=== PATIENT | male | born 1975 | race African-American/Black ===

== ENCOUNTER 2023-02-23 21:59 | Inpatient (IN) | payer MEDICAID ==
[~2023-02-23] VITALS: Ht 193 cm; Wt 88.2 kg
[2023-02-23 22:53] LABS: Basophils # (auto) 0.2 10 ^3/uL (0-0.2); Basophils % (auto) 2.5 % (0.0-2.0); Eosinophils # (auto) 0 10 ^3/uL (0-0.8); Eosinophils % (auto) 0.6 % (0.0-7.0); Hematocrit 38.3 % (41.0-53.0); Hemoglobin 12.6 g/dL (13.5-17.5); Lymphocytes # (auto) 1.5 10 ^3/uL (0.4-5.4); Lymphocytes % (auto) 20.7 % (10.0-50.0); Mean Corpuscular Hgb Conc. 32.8 g/dL (32.0-36.0); Mean Corpuscular Volume 91.5 fL (80.0-100.0); Monocytes # (auto) 0.7 10 ^3/uL (0-1.3); Monocytes % (auto) 8.9 % (0.0-12.0); Neutrophils # (auto) 4.9 10 ^3/uL (1.6-8.6); Neutrophils % (auto) 67.3 % (37.0-80.0); Nucleated Red Blood Cells % 0.1 %; Red Blood Cells 4.18 10^6/uL (4.5-5.90); White Blood Cell 7.3 10^3/uL (4.4-10.8)
[2023-02-23 23:06] LABS: INR 1.88 (0.9-1.15); Partial Thromboplastin Time 24.5 sec (24.6-33.4)
[2023-02-23 23:20] LABS: Alanine Aminotransferase 325 U/L (16-61); Albumin 2.7 g/dL (3.4-5.0); Anion Gap 14 (5-15); Aspartate Aminotransferase 371 U/L (15-37); BUN/Creatinine Ratio 18.1 (10.0-20.0); Blood Urea Nitrogen 23 mg/dL (7-18); Calcium 8.5 mg/dL (8.5-10.1); Carbon Dioxide 20 mmol/L (21-32); Chloride 101 mmol/L (98-107); GFR African American 78 mL/min; GFR Non-African American 64 mL/min; Glucose 116 mg/dL (74-106); Potassium 4.2 mmol/L (3.5-5.1); Sodium 135 mmol/L (136-145)
[2023-02-23 23:23] LABS: Alkaline Phosphatase 122 U/L (45-117); Bilirubin, Total 1.6 mg/dL (0.2-1.0); Total Protein 6.4 g/dL (6.4-8.2)
[2023-02-23 23:25] LABS: Blood Alcohol < 3.0 mg/dL (0-5)
[2023-02-24] VITALS (62 sets, daily range): BP systolic 68–121; BP diastolic 25–85
[2023-02-24] MEDS ORDERED: FUROSEMIDE 100 MG/10ML VIAL IV ONE (01:00)
[2023-02-24] MEDS: METOPROLOL TARTRATE 1MG/1ML-5ML VIAL IV SCH ×3 (01:08→01:18)
[2023-02-24] MEDS ORDERED: SODIUM CHLORIDE 0.9% 1,000 ML IV ONE (01:30)
[2023-02-24] MEDS ORDERED: LORazepam 2MG/ML-1ML VIAL IV ONE ×2 (02:30→03:45)
[2023-02-24] MEDS ORDERED: ROCURONIUM 10MG/ML 10ML VIAL IV ONE ×2 (05:45→06:30)
[2023-02-24] MEDS ORDERED: ETOMIDATE (2MG/ML) 20ML VIAL IV ONE (05:45)
[2023-02-24] MEDS ORDERED: IBUPROFEN 100MG/5ML ORAL SUSP 100 MG/5 ML UD NG PRN (05:45)
[2023-02-24] MEDS ORDERED: ALBUMIN 25% 100 ML IV ONE (05:45)
[2023-02-24] MEDS ORDERED: SODIUM CHLORIDE 0.9% 1,000 ML IV SCH (05:45)
[2023-02-24] MEDS ORDERED: LORazepam 2MG/ML-1ML VIAL IV PRN (05:45)
[2023-02-24] MEDS ORDERED: ONDANSETRON HCL 4 MG/2 ML VIAL IV PRN (05:45)
[2023-02-24] MEDS ORDERED: PROPOFOL 100 ML IV ONE (05:47)
[2023-02-24] MEDS ORDERED: fentaNYL Drip 2500mCg/250mlNS 250 ML IV ONE (05:48)
[2023-02-24] MEDS: fentaNYL Drip 2500mCg/250mlNS 250 ML IV SCH (05:50)
[2023-02-24] MEDS: PROPOFOL 100 ML IV SCH ×2 (05:50→12:28)
[2023-02-24 06:29] LABS: Basophils # (auto) 0 10 ^3/uL (0-0.2); Basophils % (auto) 0.5 % (0.0-2.0); Eosinophils # (auto) 0 10 ^3/uL (0-0.8); Lymphocytes # (auto) 1.5 10 ^3/uL (0.4-5.4); Lymphocytes % (auto) 16.8 % (10.0-50.0); Mean Corpuscular Hemoglobin 30.1 pg (28.0-32.0); Mean Corpuscular Hgb Conc. 32.6 g/dL (32.0-36.0); Mean Corpuscular Volume 92.4 fL (80.0-100.0); Monocytes # (auto) 0.7 10 ^3/uL (0-1.3); Monocytes % (auto) 7.6 % (0.0-12.0); Neutrophils # (auto) 6.5 10 ^3/uL (1.6-8.6); Neutrophils % (auto) 75.1 % (37.0-80.0); Nucleated Red Blood Cells % 0.3 %; Red Blood Cells 4.33 10^6/uL (4.5-5.90); Red Cell Distribution Width 15.5 % (11.8-14.3); White Blood Cell 8.6 10^3/uL (4.4-10.8)
[2023-02-24] MEDS ORDERED: MORPHINE SULFATE INJ 2 MG/ml SYRG IV PRN (06:30)
[2023-02-24] MEDS ORDERED: NITROGLYCERIN 0.4 MG SL TAB SL PRN (06:30)
[2023-02-24 06:58] LABS: Albumin 2.8 g/dL (3.4-5.0); BUN/Creatinine Ratio 15.7 (10.0-20.0); Calcium 8.5 mg/dL (8.5-10.1); Potassium 5.2 mmol/L (3.5-5.1)
[2023-02-24 07:01] LABS: Bilirubin, Total 2.4 mg/dL (0.2-1.0); Total Protein 6.3 g/dL (6.4-8.2)
[2023-02-24] MEDS ORDERED: DEXTROSE 10% 1,000 ML IV ONE (07:08)
[2023-02-24 07:13] LABS: Urine Bacteria NONE SEEN /hpf (None Seen); Urine Blood 2+ /uL (Negative); Urine Hyaline Cast FEW /lpf (0 - 2); Urine Specific Gravity 1.011 (1.001-1.035); Urine WBC 10 /hpf (0 - 3); Urine WBC Clumps PRESENT /hpf (None Seen)
[2023-02-24] MEDS ORDERED: DEXTROSE (50%) 50ML SYRG IV ONE (07:30)
[2023-02-24 07:44] LABS: Alcohol, Urine < 3.0 mg/dL (0-10); Amphetamine Screen, Urine NEGATIVE (NEGATIVE); Barbiturate Scree,Urine NEGATIVE (NEGATIVE); Benzodiazephine Screen, Urine NEGATIVE (NEGATIVE); Cannabinoid Screen, Urine NEGATIVE (NEGATIVE); Cocaine Screen, Urine NEGATIVE (NEGATIVE); Opiate Scree,Urine NEGATIVE (NEGATIVE); Phencyclidine Screen, Urine NEGATIVE (NEGATIVE)
[2023-02-24] MEDS: POTASSIUM CHL 20MEQ/100ML 100 ML IV SCH ×2 (08:00→10:00)
[2023-02-24] MEDS: dilTIAZem 125mg/125ml BAG KIT 100 ML IV SCH (08:00)
[2023-02-24] MEDS ORDERED: CARVEDILOL 12.5 MG TAB PO SCH (10:00)
[2023-02-24] MEDS ORDERED: FUROSEMIDE 40 MG/4 ML VIAL IV SCH (10:00)
[2023-02-24] MEDS ORDERED: SODIUM BICARBONATE 8.4 % INJ 50ML VIAL IV ONE (10:30)
[2023-02-24] MEDS: CARVEDILOL 12.5 MG TAB PO SCH ×2 (10:30→21:40)
[2023-02-24] MEDS: FAMOTIDINE (10MG/ML) 2ML VL IV SCH ×2 (12:40→22:27)
[2023-02-24] MEDS: HEPARIN SODIUM (PORCINE) 5000 UNITS/ML 1ML VIAL SC SCH ×2 (12:45→22:29)
[2023-02-24] MEDS: NOREPINEPHRINE 8 MG/250ML KIT 250 ML IV SCH ×2 (12:58→20:15)
[2023-02-24] MEDS: SODIUM BICARB 50ML SYR 50 ML in D5W/SOD CHL 0.45% 1,000 ML IV SCH (13:49)
[2023-02-24 15:26] LABS: Hepatitis A Ab IgM Negative; Hepatitis B Core IgM Negative
[2023-02-24 15:27] LABS: Hepatitis C Antibody Negative (Negative)
[2023-02-24] MEDS ORDERED: AMIODARONE HCL 150 MG in D5W 5% 100 ML IV ONE (15:45)
[2023-02-24] MEDS ORDERED: AMIODARONE 450mg/250ml AE 250 ML IV SCH (15:45)
[2023-02-24] MEDS: ACCU-CHEK COMFORT CURVE STRIP VI SCH ×3 (16:31→22:16)
[2023-02-24] MEDS: LACTULOSE 20Gm/30ML SOLN GT SCH ×2 (18:25→22:27)
[2023-02-24] MEDS ORDERED: ATORVASTATIN 20 MG TAB PO SCH (22:00)
[2023-02-24] MEDS ORDERED: SODIUM CHLORIDE 0.9% 500 ML IV ONE (22:30)
[2023-02-24] MEDS ORDERED: DEXTROSE 10% 250 ML Bag IV PRN (22:45)
[2023-02-24] MEDS: MIDAZOLAM DRIP 50 mg/50mL 50 ML IV SCH (22:56)
[2023-02-24] MEDS: AMIODARONE 450mg/250ml AE 250 ML IV SCH (23:28)
[2023-02-25] VITALS (104 sets, daily range): BP systolic 28–120; BP diastolic 8–77
[2023-02-25] MEDS: PHENYLEPHRINE IV 250 ML IV SCH ×3 (01:50→07:32)
[2023-02-25] MEDS: NOREPINEPHRINE 8 MG/250ML KIT 250 ML IV SCH ×2 (02:00→06:00)
[2023-02-25] MEDS: LACTULOSE 20Gm/30ML SOLN GT SCH ×6 (02:03→22:00)
[2023-02-25] MEDS: ACCU-CHEK COMFORT CURVE STRIP VI SCH ×6 (02:04→22:42)
[2023-02-25] MEDS: SODIUM BICARB 50ML SYR 50 ML in D5W/SOD CHL 0.45% 1,000 ML IV SCH (03:20)
[2023-02-25] MEDS: fentaNYL Drip 2500mCg/250mlNS 250 ML IV SCH (03:22)
[2023-02-25] MEDS: dilTIAZem 125mg/125ml BAG KIT 100 ML IV SCH ×2 (04:00→23:02)
[2023-02-25 04:24] LABS: Basophils # (auto) 0.1 10 ^3/uL (0-0.2); Basophils % (auto) 0.4 % (0.0-2.0); Eosinophils # (auto) 0 10 ^3/uL (0-0.8); Hematocrit 38.1 % (41.0-53.0); Hemoglobin 12.9 g/dL (13.5-17.5); Lymphocytes # (auto) 1.1 10 ^3/uL (0.4-5.4); Mean Corpuscular Hemoglobin 31.1 pg (28.0-32.0); Mean Corpuscular Hgb Conc. 33.8 g/dL (32.0-36.0); Mean Corpuscular Volume 91.8 fL (80.0-100.0); Monocytes # (auto) 1.1 10 ^3/uL (0-1.3); Neutrophils # (auto) 19.5 10 ^3/uL (1.6-8.6); Neutrophils % (auto) 89.6 % (37.0-80.0); Nucleated Red Blood Cells % 1.2 %; Red Blood Cells 4.15 10^6/uL (4.5-5.90); Red Cell Distribution Width 16.6 % (11.8-14.3); White Blood Cell 21.8 10^3/uL (4.4-10.8)
[2023-02-25 04:42] LABS: Calcium 7.1 mg/dL (8.5-10.1); Potassium 4.9 mmol/L (3.5-5.1)
[2023-02-25 05:01] LABS: Albumin 3.1 g/dL (3.4-5.0); BUN/Creatinine Ratio 12.9 (10.0-20.0); Bilirubin, Total 3.4 mg/dL (0.2-1.0); Total Protein 6.3 g/dL (6.4-8.2)
[2023-02-25] MEDS: MIDAZOLAM DRIP 50 mg/50mL 50 ML IV SCH (06:00)
[2023-02-25 06:49] LABS: Lactic Acid w/Reflex 4.5 mmol/L (0.4-2.0)
[2023-02-25] MEDS ORDERED: VASOPRESSIN 20 UNIT/ML ONE (08:21)
[2023-02-25] MEDS: VASOPRESSIN 20 UNITS in SODIUM CHL 0.9% 99 ML IV SCH ×2 (08:48→17:48)
[2023-02-25] MEDS ORDERED: LACTATED RINGER'S 1,000 ML IV ONE (09:15)
[2023-02-25] MEDS: PHENYLEPHRINE INJ 80 MG in SODIUM CHL 0.9% 242 ML IV SCH ×2 (09:29→17:07)
[2023-02-25] MEDS: EPINEPHrine HCL 250 ML IV SCH ×2 (10:00→16:55)
[2023-02-25] MEDS ORDERED: EPINEPHrine HCL 250 ML IV ONE (10:06)
[2023-02-25] MEDS ORDERED: DOBUTamine 1000MCG/ML 250 ML IV ONE (10:06)
[2023-02-25] MEDS: DOBUTamine 1000MCG/ML 250 ML IV SCH ×3 (10:20→19:05)
[2023-02-25] MEDS: SODIUM BICARBONATE 50ML VIAL 150 ML in D5W 5% 1,000 ML IV SCH ×2 (10:21→10:41)
[2023-02-25] MEDS: NOREPINEPHRINE BITARTRATE 32 MG in SODIUM CHL 0.9% 218 ML IV SCH (10:21)
[2023-02-25] MEDS ORDERED: SODIUM BICARBONATE 8.4 % INJ 50ML VIAL IV ONE ×3 (10:30→15:45)
[2023-02-25] MEDS: HEPARIN SODIUM (PORCINE) 5000 UNITS/ML 1ML VIAL SC SCH ×2 (10:45→22:44)
[2023-02-25] MEDS: FAMOTIDINE (10MG/ML) 2ML VL IV SCH (10:46)
[2023-02-25] MEDS: LINEZOLID 600MG/300ML 300 ML IV SCH ×2 (10:51→22:41)
[2023-02-25] MEDS: AMIODARONE 450mg/250ml AE 250 ML IV SCH (12:55)
[2023-02-25] MEDS: MEROPENEM 500MG IVPB 50 ML IV SCH ×2 (13:14→22:42)
[2023-02-25] MEDS: DOPamine 3200MCG/ML 250 ML IV SCH (17:37)
[2023-02-25] MEDS: BUMETANIDE INJECTION 25 MG in GIVE UN-DILUTED 0 ML IV SCH (17:50)
[2023-02-26] VITALS (104 sets, daily range): BP systolic 29–118; BP diastolic 20–81
[2023-02-26] MEDS: SODIUM BICARBONATE 50ML VIAL 150 ML in D5W 5% 1,000 ML IV SCH ×2 (00:17→12:41)
[2023-02-26] MEDS: PHENYLEPHRINE INJ 80 MG in SODIUM CHL 0.9% 242 ML IV SCH ×4 (00:17→23:44)
[2023-02-26] MEDS: LACTULOSE 20Gm/30ML SOLN GT SCH ×6 (01:59→21:16)
[2023-02-26] MEDS: ACCU-CHEK COMFORT CURVE STRIP VI SCH ×6 (02:04→22:01)
[2023-02-26] MEDS: NOREPINEPHRINE BITARTRATE 32 MG in SODIUM CHL 0.9% 218 ML IV SCH ×2 (03:00→20:20)
[2023-02-26] MEDS: DOBUTamine 1000MCG/ML 250 ML IV SCH ×3 (03:43→21:13)
[2023-02-26] MEDS: AMIODARONE 450mg/250ml AE 250 ML IV SCH ×2 (03:45→19:10)
[2023-02-26 04:29] LABS: Basophils # (auto) 0 10 ^3/uL (0-0.2); Basophils % (auto) 0.1 % (0.0-2.0); Eosinophils # (auto) 0 10 ^3/uL (0-0.8); Hematocrit 38.3 % (41.0-53.0); Lymphocytes % (auto) 4.3 % (10.0-50.0); Mean Corpuscular Hemoglobin 30.1 pg (28.0-32.0); Mean Corpuscular Hgb Conc. 31.2 g/dL (32.0-36.0); Mean Corpuscular Volume 96.3 fL (80.0-100.0); Monocytes # (auto) 1.2 10 ^3/uL (0-1.3); Monocytes % (auto) 5.1 % (0.0-12.0); Neutrophils # (auto) 20.7 10 ^3/uL (1.6-8.6); Neutrophils % (auto) 90.5 % (37.0-80.0); Nucleated Red Blood Cells % 1.7 %; Red Blood Cells 3.97 10^6/uL (4.5-5.90); Red Cell Distribution Width 17.7 % (11.8-14.3); White Blood Cell 22.9 10^3/uL (4.4-10.8)
[2023-02-26 04:45] LABS: BUN/Creatinine Ratio 9.8 (10.0-20.0); Calcium 6.3 mg/dL (8.5-10.1)
[2023-02-26 05:11] LABS: Potassium 5.1 mmol/L (3.5-5.1)
[2023-02-26] MEDS: VASOPRESSIN 20 UNITS in SODIUM CHL 0.9% 99 ML IV SCH ×2 (05:38→18:06)
[2023-02-26] MEDS: fentaNYL Drip 2500mCg/250mlNS 250 ML IV SCH ×2 (05:39→09:47)
[2023-02-26] MEDS: PROPOFOL 100 ML IV SCH (05:39)
[2023-02-26] MEDS: EPINEPHrine HCL 250 ML IV SCH ×4 (07:03→21:11)
[2023-02-26] MEDS: HEPARIN SODIUM (PORCINE) 5000 UNITS/ML 1ML VIAL SC SCH ×2 (10:00→21:16)
[2023-02-26] MEDS: LINEZOLID 600MG/300ML 300 ML IV SCH ×2 (10:10→22:01)
[2023-02-26] MEDS: FAMOTIDINE (10MG/ML) 2ML VL IV SCH (10:10)
[2023-02-26] MEDS: BUMETANIDE INJECTION 25 MG in GIVE UN-DILUTED 0 ML IV SCH (12:48)
[2023-02-26] MEDS: MEROPENEM 500MG IVPB 50 ML IV SCH (13:09)
[2023-02-26] MEDS: DOPamine 3200MCG/ML 250 ML IV SCH (16:30)
[2023-02-26] MEDS ORDERED: CLINIMIX PER PHARMACY 0 ML IV SCH (17:45)
[2023-02-26] MEDS: dilTIAZem 125mg/125ml BAG KIT 100 ML IV SCH (19:43)
[2023-02-26] MEDS: AMINO ACID INFUSION IN D10W 1,000 ML IV NR (20:00)
[2023-02-26] MEDS: MIDAZOLAM DRIP 50 mg/50mL 50 ML IV SCH (22:30)
[2023-02-27] VITALS (105 sets, daily range): BP systolic 86–128; BP diastolic 54–85
[2023-02-27] MEDS ORDERED: DEXTROSE (50%) 50ML SYRG IV SCH
[2023-02-27] MEDS: ACCU-CHEK COMFORT CURVE STRIP VI SCH ×5 (00:19→23:33)
[2023-02-27] MEDS: InsuLIN REG 1unit/0.01ml Soln (100units/ml) SC SCH ×5 (00:19→23:43)
[2023-02-27] MEDS: SODIUM BICARBONATE 50ML VIAL 150 ML in D5W 5% 1,000 ML IV SCH (00:19)
[2023-02-27] MEDS: MEROPENEM 500MG IVPB 50 ML IV SCH ×3 (00:19→23:33)
[2023-02-27] MEDS: LACTULOSE 20Gm/30ML SOLN GT SCH ×6 (01:39→22:08)
[2023-02-27] MEDS: EPINEPHrine HCL 250 ML IV SCH ×2 (04:06→11:34)
[2023-02-27 04:23] LABS: Mean Corpuscular Hemoglobin 30.3 pg (28.0-32.0); Mean Corpuscular Hgb Conc. 32.4 g/dL (32.0-36.0); Mean Corpuscular Volume 93.5 fL (80.0-100.0); Red Blood Cells 3.96 10^6/uL (4.5-5.90); Red Cell Distribution Width 16.9 % (11.8-14.3); White Blood Cell 17.3 10^3/uL (4.4-10.8)
[2023-02-27 04:28] LABS: Albumin 2.5 g/dL (3.4-5.0); Magnesium 2.3 mg/dL (1.6-2.6); Potassium 4.3 mmol/L (3.5-5.1)
[2023-02-27 04:57] LABS: Basophils % (manual) 0 (0.0-2.0); Blast Cells 0; Eosinophils % (manual) 0 (0-7); Metamyelocytes % 0; Myelocytes % 0; Promyelocytes % 0; Reactive Lymphocytes 0
[2023-02-27 05:08] LABS: BUN/Creatinine Ratio 9.2 (10.0-20.0); Bilirubin, Total 4.9 mg/dL (0.2-1.0); Total Protein 5.2 g/dL (6.4-8.2)
[2023-02-27] MEDS: VASOPRESSIN 20 UNITS in SODIUM CHL 0.9% 99 ML IV SCH ×2 (05:12→16:05)
[2023-02-27] MEDS: fentaNYL Drip 2500mCg/250mlNS 250 ML IV SCH (05:14)
[2023-02-27 05:23] LABS: Calcium 5.1 mg/dL (8.5-10.1)
[2023-02-27] MEDS: PROPOFOL 100 ML IV SCH (05:43)
[2023-02-27] MEDS: DOBUTamine 1000MCG/ML 250 ML IV SCH ×3 (06:07→23:30)
[2023-02-27 07:37] LABS: Band Neutrophils % (manual) 9; Lymphocytes % (manual) 7 (10.0-50.0); Monocytes % (manual) 8 (0-12)
[2023-02-27] MEDS: PHENYLEPHRINE INJ 80 MG in SODIUM CHL 0.9% 242 ML IV SCH ×3 (07:43→23:15)
[2023-02-27] MEDS: FAMOTIDINE (10MG/ML) 2ML VL IV SCH (08:49)
[2023-02-27] MEDS: HEPARIN SODIUM (PORCINE) 5000 UNITS/ML 1ML VIAL SC SCH ×2 (08:50→22:08)
[2023-02-27] MEDS: LINEZOLID 600MG/300ML 300 ML IV SCH (08:51)
[2023-02-27] MEDS ORDERED: AMIODARONE 450mg/250ml AE 0 ML IV ONE (09:27)
[2023-02-27] MEDS ORDERED: CALCIUM GLUC 1,000mg/50ml-NS 50 ML IV ONE ×2 (10:45→15:00)
[2023-02-27] MEDS: BUMETANIDE INJECTION 25 MG in GIVE UN-DILUTED 0 ML IV SCH (12:44)
[2023-02-27] MEDS: DOPamine 3200MCG/ML 250 ML IV SCH (16:30)
[2023-02-27] MEDS: IPRATROPIUM BROM 0.5 MG/2.5ML INH SOL NEB SCH (18:17)
[2023-02-27] MEDS: ACETYLCYSTEINE 10 %(100MG/ML) SOL 4ML NEB SCH (18:17)
[2023-02-27] MEDS: LEVALBUTEROL HCL 1.25 MG/3 ML NEB NEB SCH (18:17)
[2023-02-27] MEDS: NOREPINEPHRINE BITARTRATE 32 MG in SODIUM CHL 0.9% 218 ML IV SCH (19:24)
[2023-02-27] MEDS: AMINO ACID INFUSION IN D10W 1,000 ML IV NR (20:02)
[2023-02-27] MEDS: MIDAZOLAM DRIP 50 mg/50mL 50 ML IV SCH (22:30)
[2023-02-28] VITALS (108 sets, daily range): BP systolic 88–123; BP diastolic 46–76
[2023-02-28] MEDS: LEVALBUTEROL HCL 1.25 MG/3 ML NEB NEB SCH ×5 (00:07→23:57)
[2023-02-28] MEDS: ACETYLCYSTEINE 10 %(100MG/ML) SOL 4ML NEB SCH ×5 (00:08→23:58)
[2023-02-28] MEDS: LACTULOSE 20Gm/30ML SOLN GT SCH ×6 (02:10→22:03)
[2023-02-28] MEDS: VASOPRESSIN 20 UNITS in SODIUM CHL 0.9% 99 ML IV SCH ×2 (03:12→14:19)
[2023-02-28 04:30] LABS: Basophils # (auto) 0 10 ^3/uL (0-0.2); Basophils % (auto) 0.2 % (0.0-2.0); Eosinophils # (auto) 0.1 10 ^3/uL (0-0.8); Eosinophils % (auto) 0.5 % (0.0-7.0); Hemoglobin 11.4 g/dL (13.5-17.5); Lymphocytes # (auto) 0.7 10 ^3/uL (0.4-5.4); Lymphocytes % (auto) 5.2 % (10.0-50.0); Mean Corpuscular Hemoglobin 30.4 pg (28.0-32.0); Mean Corpuscular Hgb Conc. 33.5 g/dL (32.0-36.0); Mean Corpuscular Volume 90.7 fL (80.0-100.0); Monocytes # (auto) 0.7 10 ^3/uL (0-1.3); Monocytes % (auto) 5.1 % (0.0-12.0); Neutrophils # (auto) 11.9 10 ^3/uL (1.6-8.6); Red Blood Cells 3.75 10^6/uL (4.5-5.90); Red Cell Distribution Width 16.8 % (11.8-14.3); White Blood Cell 13.4 10^3/uL (4.4-10.8)
[2023-02-28] MEDS: fentaNYL Drip 2500mCg/250mlNS 250 ML IV SCH (05:03)
[2023-02-28 05:10] LABS: Albumin 2.4 g/dL (3.4-5.0); BUN/Creatinine Ratio 9.5 (10.0-20.0); Bilirubin, Total 5.8 mg/dL (0.2-1.0); Magnesium 2.1 mg/dL (1.6-2.6); Phosphorus 5.6 mg/dL (2.5-4.90); Total Protein 4.8 g/dL (6.4-8.2)
[2023-02-28 05:17] LABS: Calcium 5.3 mg/dL (8.5-10.1)
[2023-02-28] MEDS: PROPOFOL 100 ML IV SCH (05:37)
[2023-02-28] MEDS: ACCU-CHEK COMFORT CURVE STRIP VI SCH ×4 (05:42→23:44)
[2023-02-28] MEDS: InsuLIN REG 1unit/0.01ml Soln (100units/ml) SC SCH ×4 (05:45→23:47)
[2023-02-28] MEDS: IPRATROPIUM BROM 0.5 MG/2.5ML INH SOL NEB SCH ×3 (06:24→18:47)
[2023-02-28] MEDS: CALCIUM GLUC 1,000mg/50ml-NS 50 ML IV SCH ×2 (06:45→07:20)
[2023-02-28] MEDS: PHENYLEPHRINE INJ 80 MG in SODIUM CHL 0.9% 242 ML IV SCH (07:14)
[2023-02-28] MEDS ORDERED: Nepro With Carb Steady 1 Liter Bottle GT SCH (07:45)
[2023-02-28] MEDS: DOBUTamine 1000MCG/ML 250 ML IV SCH ×2 (09:12→17:23)
[2023-02-28] MEDS: PANTOPRAZOLE 40 MG/10 ML VIAL INJ IV SCH (09:43)
[2023-02-28] MEDS: HEPARIN SODIUM (PORCINE) 5000 UNITS/ML 1ML VIAL SC SCH ×2 (09:43→22:00)
[2023-02-28] MEDS: EPINEPHrine HCL 250 ML IV SCH (10:16)
[2023-02-28] MEDS: MEROPENEM 500MG IVPB 50 ML IV SCH ×2 (11:51→23:44)
[2023-02-28] MEDS ORDERED: CALCIUM GLUC 1,000mg/50ml-NS 50 ML IV ONE (14:00)
[2023-02-28] MEDS: BUMETANIDE INJECTION 25 MG in GIVE UN-DILUTED 0 ML IV SCH (14:54)
[2023-02-28] MEDS: DOPamine 3200MCG/ML 250 ML IV SCH (16:30)
[2023-02-28] MEDS: AMINO ACID INFUSION IN D10W 1,000 ML IV NR (19:47)
[2023-02-28] MEDS: MIDAZOLAM DRIP 50 mg/50mL 50 ML IV SCH (22:09)
[2023-03-01] VITALS (105 sets, daily range): BP systolic 90–130; BP diastolic 47–69
[2023-03-01] MEDS: VASOPRESSIN 20 UNITS in SODIUM CHL 0.9% 99 ML IV SCH ×2 (01:26→09:50)
[2023-03-01] MEDS: LACTULOSE 20Gm/30ML SOLN GT SCH ×6 (02:00→21:54)
[2023-03-01] MEDS: DOBUTamine 1000MCG/ML 250 ML IV SCH ×3 (02:02→15:11)
[2023-03-01] MEDS: fentaNYL Drip 2500mCg/250mlNS 250 ML IV SCH ×2 (04:15→15:12)
[2023-03-01 04:47] LABS: Monocytes # (auto) 0.5 10 ^3/uL (0-1.3); Neutrophils # (auto) 8.8 10 ^3/uL (1.6-8.6); Nucleated Red Blood Cells % 0.7 %; White Blood Cell 9.8 10^3/uL (4.4-10.8)
[2023-03-01 04:49] LABS: Basophils # (auto) 0 10 ^3/uL (0-0.2); Basophils % (auto) 0.3 % (0.0-2.0); Eosinophils # (auto) 0 10 ^3/uL (0-0.8); Eosinophils % (auto) 0.5 % (0.0-7.0); Hematocrit 32.5 % (41.0-53.0); Lymphocytes # (auto) 0.4 10 ^3/uL (0.4-5.4); Lymphocytes % (auto) 3.7 % (10.0-50.0); Mean Corpuscular Hemoglobin 30.5 pg (28.0-32.0); Mean Corpuscular Hgb Conc. 33.9 g/dL (32.0-36.0); Mean Corpuscular Volume 90.2 fL (80.0-100.0); Monocytes % (auto) 5.5 % (0.0-12.0); Red Cell Distribution Width 16.5 % (11.8-14.3)
[2023-03-01] MEDS: PROPOFOL 100 ML IV SCH (04:50)
[2023-03-01 04:51] LABS: INR 3.04 (0.9-1.15); Partial Thromboplastin Time 43.3 sec (24.6-33.4)
[2023-03-01 05:10] LABS: BUN/Creatinine Ratio 8.6 (10.0-20.0); Bilirubin, Total 6.9 mg/dL (0.2-1.0); Calcium 6.6 mg/dL (8.5-10.1); Phosphorus 4.4 mg/dL (2.5-4.90); Total Protein 4.6 g/dL (6.4-8.2)
[2023-03-01] MEDS: InsuLIN REG 1unit/0.01ml Soln (100units/ml) SC SCH ×3 (06:00→17:45)
[2023-03-01] MEDS: ACCU-CHEK COMFORT CURVE STRIP VI SCH ×3 (06:07→17:46)
[2023-03-01] MEDS: LEVALBUTEROL HCL 1.25 MG/3 ML NEB NEB SCH ×3 (06:10→18:23)
[2023-03-01] MEDS: IPRATROPIUM BROM 0.5 MG/2.5ML INH SOL NEB SCH ×3 (06:10→18:23)
[2023-03-01] MEDS: ACETYLCYSTEINE 10 %(100MG/ML) SOL 4ML NEB SCH ×2 (06:10→12:22)
[2023-03-01] MEDS: PHENYLEPHRINE INJ 80 MG in SODIUM CHL 0.9% 242 ML IV SCH (08:15)
[2023-03-01] MEDS: NOREPINEPHRINE BITARTRATE 32 MG in SODIUM CHL 0.9% 218 ML IV SCH (08:15)
[2023-03-01] MEDS: MIDAZOLAM DRIP 50 mg/50mL 50 ML IV SCH ×2 (09:09→17:45)
[2023-03-01] MEDS: PANTOPRAZOLE 40 MG/10 ML VIAL INJ IV SCH (09:50)
[2023-03-01] MEDS: BUMETANIDE INJECTION 25 MG in GIVE UN-DILUTED 0 ML IV SCH (09:50)
[2023-03-01] MEDS ORDERED: CALCIUM GLUC 1,000mg/50ml-NS 50 ML IV ONE (10:30)
[2023-03-01] MEDS: MEROPENEM 500MG IVPB 50 ML IV SCH (11:25)
[2023-03-01] MEDS: METOCLOPRAMIDE HCL 5MG/ml INJ 2ml VIAL IV SCH ×2 (13:45→21:55)
[2023-03-01] MEDS: AMINO ACID INFUSION IN D10W 1,000 ML IV NR (19:47)
[2023-03-02] VITALS (107 sets, daily range): BP systolic 100–140; BP diastolic 48–78
[2023-03-02] MEDS: LEVALBUTEROL HCL 1.25 MG/3 ML NEB NEB SCH ×4 (00:02→18:47)
[2023-03-02] MEDS: fentaNYL Drip 2500mCg/250mlNS 250 ML IV SCH ×2 (02:00→14:16)
[2023-03-02] MEDS: LACTULOSE 20Gm/30ML SOLN GT SCH ×5 (02:00→21:46)
[2023-03-02 03:10] LABS: Albumin 2.1 g/dL (3.4-5.0); Calcium 6.8 mg/dL (8.5-10.1); Potassium 3.7 mmol/L (3.5-5.1)
[2023-03-02 03:11] LABS: Eosinophils # (auto) 0.2 10 ^3/uL (0-0.8)
[2023-03-02 03:13] LABS: Basophils # (auto) 0.1 10 ^3/uL (0-0.2); Basophils % (auto) 0.7 % (0.0-2.0); Eosinophils % (auto) 2.4 % (0.0-7.0); Hematocrit 32.8 % (41.0-53.0); Hemoglobin 11.1 g/dL (13.5-17.5); Lymphocytes % (auto) 12.2 % (10.0-50.0); Mean Corpuscular Hemoglobin 30.3 pg (28.0-32.0); Mean Corpuscular Hgb Conc. 33.9 g/dL (32.0-36.0); Mean Corpuscular Volume 89.3 fL (80.0-100.0); Monocytes # (auto) 0.5 10 ^3/uL (0-1.3); Monocytes % (auto) 6.4 % (0.0-12.0); Neutrophils # (auto) 6.5 10 ^3/uL (1.6-8.6); Neutrophils % (auto) 78.3 % (37.0-80.0); Nucleated Red Blood Cells % 0.5 %; Red Blood Cells 3.68 10^6/uL (4.5-5.90); Red Cell Distribution Width 17.2 % (11.8-14.3); White Blood Cell 8.3 10^3/uL (4.4-10.8)
[2023-03-02 03:16] LABS: Phosphorus 4.5 mg/dL (2.5-4.90)
[2023-03-02 03:18] LABS: BUN/Creatinine Ratio 9.4 (10.0-20.0); Bilirubin, Total 7.4 mg/dL (0.2-1.0); Total Protein 4.4 g/dL (6.4-8.2)
[2023-03-02] MEDS: METOCLOPRAMIDE HCL 5MG/ml INJ 2ml VIAL IV SCH ×3 (05:46→21:46)
[2023-03-02] MEDS: DOBUTamine 1000MCG/ML 250 ML IV SCH ×2 (05:58→22:56)
[2023-03-02] MEDS: IPRATROPIUM BROM 0.5 MG/2.5ML INH SOL NEB SCH ×3 (06:12→18:47)
[2023-03-02] MEDS: InsuLIN REG 1unit/0.01ml Soln (100units/ml) SC SCH ×4 (07:50→17:52)
[2023-03-02] MEDS: ACCU-CHEK COMFORT CURVE STRIP VI SCH ×4 (07:50→17:49)
[2023-03-02] MEDS: VASOPRESSIN 20 UNITS in SODIUM CHL 0.9% 99 ML IV SCH ×3 (07:50→21:41)
[2023-03-02] MEDS: PROPOFOL 100 ML IV SCH (07:51)
[2023-03-02] MEDS: NOREPINEPHRINE BITARTRATE 32 MG in SODIUM CHL 0.9% 218 ML IV SCH (08:12)
[2023-03-02] MEDS: PHENYLEPHRINE INJ 80 MG in SODIUM CHL 0.9% 242 ML IV SCH (08:12)
[2023-03-02] MEDS: AMIODARONE HCL 200 MG TAB PO SCH ×2 (09:47→21:46)
[2023-03-02] MEDS: PANTOPRAZOLE 40 MG/10 ML VIAL INJ IV SCH (09:47)
[2023-03-02] MEDS: EPINEPHrine HCL 250 ML IV SCH (10:00)
[2023-03-02] MEDS ORDERED: CALCIUM GLUC 1,000mg/50ml-NS 50 ML IV ONE (11:00)
[2023-03-02] MEDS: MEROPENEM 500MG IVPB 50 ML IV SCH ×3 (11:40→23:52)
[2023-03-02] MEDS: MIDAZOLAM DRIP 50 mg/50mL 50 ML IV SCH (12:49)
[2023-03-02] MEDS: AMINO ACID INFUSION IN D10W 1,000 ML IV NR ×2 (19:16→20:18)
[2023-03-03] VITALS (104 sets, daily range): BP systolic 97–134; BP diastolic 50–77
[2023-03-03] MEDS ORDERED: phytonadione 10 MG in SODIUM CHL 0.9% 50 ML IV ONE (00:15)
[2023-03-03] MEDS: LEVALBUTEROL HCL 1.25 MG/3 ML NEB NEB SCH ×4 (00:28→18:00)
[2023-03-03] MEDS: IPRATROPIUM BROM 0.5 MG/2.5ML INH SOL NEB SCH ×4 (00:28→18:00)
[2023-03-03] MEDS: ACCU-CHEK COMFORT CURVE STRIP VI SCH ×4 (01:41→18:39)
[2023-03-03 04:31] LABS: Albumin 1.9 g/dL (3.4-5.0); Calcium 7.1 mg/dL (8.5-10.1); Magnesium 2.2 mg/dL (1.6-2.6); Potassium 3.8 mmol/L (3.5-5.1)
[2023-03-03 04:40] LABS: % Iron Saturation 34.2 % (20-55); BUN/Creatinine Ratio 10.9 (10.0-20.0); Bilirubin, Total 8.2 mg/dL (0.2-1.0); Phosphorus 5.8 mg/dL (2.5-4.90); Total Protein 4.6 g/dL (6.4-8.2)
[2023-03-03 04:44] LABS: Basophils # (auto) 0 10 ^3/uL (0-0.2); Hematocrit 34.9 % (41.0-53.0); Hemoglobin 11.7 g/dL (13.5-17.5); Nucleated Red Blood Cells % 0.3 %
[2023-03-03 04:52] LABS: INR 2.12 (0.9-1.15); Partial Thromboplastin Time 39.7 sec (24.6-33.4)
[2023-03-03 04:55] LABS: Basophils % (auto) 0.6 % (0.0-2.0); Eosinophils # (auto) 0.3 10 ^3/uL (0-0.8); Eosinophils % (auto) 3.9 % (0.0-7.0); Lymphocytes # (auto) 0.8 10 ^3/uL (0.4-5.4); Lymphocytes % (auto) 11.5 % (10.0-50.0); Mean Corpuscular Hemoglobin 29.9 pg (28.0-32.0); Mean Corpuscular Hgb Conc. 33.5 g/dL (32.0-36.0); Mean Corpuscular Volume 89.2 fL (80.0-100.0); Monocytes # (auto) 0.9 10 ^3/uL (0-1.3); Monocytes % (auto) 12.6 % (0.0-12.0); Neutrophils % (auto) 71.4 % (37.0-80.0); Red Blood Cells 3.91 10^6/uL (4.5-5.90); Red Cell Distribution Width 17.1 % (11.8-14.3); White Blood Cell 6.9 10^3/uL (4.4-10.8)
[2023-03-03] MEDS: MIDAZOLAM DRIP 50 mg/50mL 50 ML IV SCH ×2 (05:00→22:14)
[2023-03-03] MEDS: PROPOFOL 100 ML IV SCH (05:45)
[2023-03-03] MEDS: InsuLIN REG 1unit/0.01ml Soln (100units/ml) SC SCH ×4 (05:54→18:39)
[2023-03-03] MEDS: METOCLOPRAMIDE HCL 5MG/ml INJ 2ml VIAL IV SCH (06:21)
[2023-03-03] MEDS ORDERED: SODIUM CHL 0.9% 1000 ML BAG XX ONE (07:00)
[2023-03-03] MEDS: PHENYLEPHRINE INJ 80 MG in SODIUM CHL 0.9% 242 ML IV SCH (08:15)
[2023-03-03] MEDS: NOREPINEPHRINE BITARTRATE 32 MG in SODIUM CHL 0.9% 218 ML IV SCH (08:15)
[2023-03-03] MEDS: VASOPRESSIN 20 UNITS in SODIUM CHL 0.9% 99 ML IV SCH ×2 (09:01→20:08)
[2023-03-03] MEDS: LACTULOSE 20Gm/30ML SOLN GT SCH ×2 (09:01→22:14)
[2023-03-03] MEDS: AMIODARONE HCL 200 MG TAB PO SCH ×2 (09:01→22:14)
[2023-03-03] MEDS: EPINEPHrine HCL 250 ML IV SCH (09:09)
[2023-03-03] MEDS: PANTOPRAZOLE 40 MG/10 ML VIAL INJ IV SCH (09:10)
[2023-03-03] MEDS: MEROPENEM 500MG IVPB 50 ML IV SCH (12:22)
[2023-03-03 14:17] LABS: Hepatitis A Ab IgM Negative; Hepatitis B Core IgM Negative; Hepatitis C Antibody Negative (Negative)
[2023-03-03] MEDS: DOBUTamine 1000MCG/ML 250 ML IV SCH (15:34)
[2023-03-03] MEDS: fentaNYL Drip 2500mCg/250mlNS 250 ML IV SCH ×2 (15:36)
[2023-03-03] MEDS: AMINO ACID INFUSION IN D10W 1,000 ML IV NR ×2 (20:01→20:02)
[2023-03-04] VITALS (103 sets, daily range): BP systolic 108–149; BP diastolic 53–90
[2023-03-04] MEDS: LEVALBUTEROL HCL 1.25 MG/3 ML NEB NEB SCH ×4 (00:06→18:16)
[2023-03-04] MEDS: IPRATROPIUM BROM 0.5 MG/2.5ML INH SOL NEB SCH ×4 (00:07→18:17)
[2023-03-04] MEDS: ACCU-CHEK COMFORT CURVE STRIP VI SCH ×4 (01:20→18:00)
[2023-03-04] MEDS: MEROPENEM 500MG IVPB 50 ML IV SCH ×2 (01:23→12:14)
[2023-03-04] MEDS: fentaNYL Drip 2500mCg/250mlNS 250 ML IV SCH ×2 (03:35→15:31)
[2023-03-04 04:43] LABS: Hematocrit 33.8 % (41.0-53.0); Hemoglobin 11.5 g/dL (13.5-17.5)
[2023-03-04 04:52] LABS: Albumin 1.9 g/dL (3.4-5.0); Calcium 7.1 mg/dL (8.5-10.1); Magnesium 2.2 mg/dL (1.6-2.6); Potassium 3.8 mmol/L (3.5-5.1)
[2023-03-04 05:03] LABS: BUN/Creatinine Ratio 10.5 (10.0-20.0); Bilirubin, Total 8.2 mg/dL (0.2-1.0); Phosphorus 5.2 mg/dL (2.5-4.90); Total Protein 4.8 g/dL (6.4-8.2)
[2023-03-04 05:20] LABS: Mean Corpuscular Hgb Conc. 33.9 g/dL (32.0-36.0); Mean Corpuscular Volume 88.5 fL (80.0-100.0); Red Blood Cells 3.82 10^6/uL (4.5-5.90); Red Cell Distribution Width 17.6 % (11.8-14.3); White Blood Cell 6.7 10^3/uL (4.4-10.8)
[2023-03-04 05:21] LABS: Basophils % (manual) 0 (0.0-2.0); Blast Cells 0; Metamyelocytes % 0; Myelocytes % 0; Promyelocytes % 0; Reactive Lymphocytes 0
[2023-03-04] MEDS: PROPOFOL 100 ML IV SCH (05:45)
[2023-03-04] MEDS: InsuLIN REG 1unit/0.01ml Soln (100units/ml) SC SCH ×4 (06:00→18:00)
[2023-03-04 06:50] LABS: INR 1.9 (0.9-1.15)
[2023-03-04] MEDS: VASOPRESSIN 20 UNITS in SODIUM CHL 0.9% 99 ML IV SCH (07:15)
[2023-03-04] MEDS: NOREPINEPHRINE BITARTRATE 32 MG in SODIUM CHL 0.9% 218 ML IV SCH (08:15)
[2023-03-04] MEDS: PHENYLEPHRINE INJ 80 MG in SODIUM CHL 0.9% 242 ML IV SCH (08:15)
[2023-03-04] MEDS: EPINEPHrine HCL 250 ML IV SCH (08:29)
[2023-03-04 08:51] LABS: Band Neutrophils % (manual) 2; Lymphocytes % (manual) 22 (10.0-50.0); Monocytes % (manual) 11 (0-12)
[2023-03-04 08:52] LABS: Eosinophils % (manual) 6 (0-7)
[2023-03-04] MEDS: DOBUTamine 1000MCG/ML 250 ML IV SCH (09:08)
[2023-03-04] MEDS: MIDAZOLAM DRIP 50 mg/50mL 50 ML IV SCH ×3 (09:08→22:28)
[2023-03-04] MEDS ORDERED: TPN PER PHARMACY 0 ML IV SCH (09:30)
[2023-03-04] MEDS: LACTULOSE 20Gm/30ML SOLN GT SCH ×2 (11:03→22:05)
[2023-03-04] MEDS: PANTOPRAZOLE 40 MG/10 ML VIAL INJ IV SCH (11:03)
[2023-03-04] MEDS: AMIODARONE HCL 200 MG TAB PO SCH ×2 (11:03→22:05)
[2023-03-04] MEDS: ACETYLCYSTEINE 10 %(100MG/ML) SOL 4ML NEB SCH ×2 (11:42→18:17)
[2023-03-04 13:59] LABS: Protein, Urine 54.8 mg/dL (0.0-11.9)
[2023-03-04] MEDS: CALCIUM ACETATE 667 MG CAP NG SCH ×2 (17:34→22:05)
[2023-03-04] MEDS: BUMETANIDE 2.5mg/10ml (0.25 mg/ml) INJ IV SCH (18:26)
[2023-03-04] MEDS: AMINO ACID INFUSION IN D10W 1,000 ML IV NR ×2 (19:49→20:20)
[2023-03-05] VITALS (104 sets, daily range): BP systolic 90–170; BP diastolic 40–104
[2023-03-05] MEDS: MEROPENEM 500MG IVPB 50 ML IV SCH
[2023-03-05] MEDS: ACETYLCYSTEINE 10 %(100MG/ML) SOL 4ML NEB SCH ×3 (01:38→18:31)
[2023-03-05] MEDS: LEVALBUTEROL HCL 1.25 MG/3 ML NEB NEB SCH ×3 (01:38→18:30)
[2023-03-05] MEDS: IPRATROPIUM BROM 0.5 MG/2.5ML INH SOL NEB SCH ×3 (01:38→18:30)
[2023-03-05] MEDS: DOBUTamine 1000MCG/ML 250 ML IV SCH ×2 (02:29→20:39)
[2023-03-05] MEDS: fentaNYL Drip 2500mCg/250mlNS 250 ML IV SCH ×2 (02:30→18:21)
[2023-03-05] MEDS: MIDAZOLAM DRIP 50 mg/50mL 50 ML IV SCH ×3 (02:45→12:35)
[2023-03-05] MEDS: ALBUMIN 25% 100 ML IV PRN ×2 (04:00→05:00)
[2023-03-05 04:23] LABS: Mean Corpuscular Hemoglobin 30.3 pg (28.0-32.0)
[2023-03-05 04:25] LABS: Hematocrit 33.3 % (41.0-53.0); Hemoglobin 11.6 g/dL (13.5-17.5); Mean Corpuscular Hgb Conc. 34.7 g/dL (32.0-36.0); Mean Corpuscular Volume 87.2 fL (80.0-100.0); Red Blood Cells 3.82 10^6/uL (4.5-5.90); Red Cell Distribution Width 17.6 % (11.8-14.3); White Blood Cell 7.3 10^3/uL (4.4-10.8)
[2023-03-05] MEDS: NOREPINEPHRINE BITARTRATE 32 MG in SODIUM CHL 0.9% 218 ML IV SCH (04:26)
[2023-03-05 04:33] LABS: Calcium 7.3 mg/dL (8.5-10.1); Potassium 3.6 mmol/L (3.5-5.1)
[2023-03-05 04:35] LABS: Band Neutrophils % (manual) 0; Basophils % (manual) 0 (0.0-2.0); Blast Cells 0; Metamyelocytes % 0; Myelocytes % 0; Promyelocytes % 0; Reactive Lymphocytes 0
[2023-03-05 04:39] LABS: Albumin 1.8 g/dL (3.4-5.0); BUN/Creatinine Ratio 12.1 (10.0-20.0); Bilirubin, Total 8.4 mg/dL (0.2-1.0); Phosphorus 5.1 mg/dL (2.5-4.90); Total Protein 4.7 g/dL (6.4-8.2)
[2023-03-05] MEDS: PROPOFOL 100 ML IV SCH (05:45)
[2023-03-05] MEDS: CALCIUM ACETATE 667 MG CAP NG SCH ×3 (06:00→21:22)
[2023-03-05] MEDS: BUMETANIDE 2.5mg/10ml (0.25 mg/ml) INJ IV SCH ×2 (06:00→18:26)
[2023-03-05] MEDS: InsuLIN REG 1unit/0.01ml Soln (100units/ml) SC SCH ×4 (06:00→17:50)
[2023-03-05] MEDS: ACCU-CHEK COMFORT CURVE STRIP VI SCH ×4 (06:27→17:50)
[2023-03-05] MEDS ORDERED: SODIUM CHL 0.9% 1000 ML BAG XX ONE (07:00)
[2023-03-05 07:37] LABS: Lymphocytes % (manual) 19 (10.0-50.0)
[2023-03-05 07:40] LABS: Eosinophils % (manual) 2 (0-7); Monocytes % (manual) 20 (0-12)
[2023-03-05] MEDS: PHENYLEPHRINE INJ 80 MG in SODIUM CHL 0.9% 242 ML IV SCH (08:15)
[2023-03-05] MEDS: LACTULOSE 20Gm/30ML SOLN GT SCH ×2 (09:46→21:22)
[2023-03-05] MEDS: AMIODARONE HCL 200 MG TAB PO SCH ×2 (09:46→21:23)
[2023-03-05] MEDS: PANTOPRAZOLE 40 MG/10 ML VIAL INJ IV SCH (09:46)
[2023-03-05] MEDS: AMINO ACID INFUSION IN D10W 1,000 ML IV NR (19:46)
[2023-03-05] MEDS: TPN PER PHARMACY IV NR ×5 (19:46)
[2023-03-05] MEDS: METOCLOPRAMIDE HCL 5MG/ml INJ 2ml VIAL IV SCH (21:22)
[2023-03-06] VITALS (110 sets, daily range): BP systolic 116–189; BP diastolic 58–125
[2023-03-06] MEDS: ACCU-CHEK COMFORT CURVE STRIP VI SCH ×5 (00:10→23:46)
[2023-03-06] MEDS: LEVALBUTEROL HCL 1.25 MG/3 ML NEB NEB SCH ×4 (00:22→18:48)
[2023-03-06] MEDS: IPRATROPIUM BROM 0.5 MG/2.5ML INH SOL NEB SCH ×4 (00:22→18:48)
[2023-03-06] MEDS: MIDAZOLAM DRIP 50 mg/50mL 50 ML IV SCH ×2 (03:43→21:14)
[2023-03-06] MEDS: PROPOFOL 100 ML IV SCH ×2 (04:19→22:56)
[2023-03-06 04:48] LABS: Hemoglobin 11.1 g/dL (13.5-17.5)
[2023-03-06 04:49] LABS: Hematocrit 32.4 % (41.0-53.0); Mean Corpuscular Hgb Conc. 34.3 g/dL (32.0-36.0); Mean Corpuscular Volume 87.6 fL (80.0-100.0); Red Cell Distribution Width 17.6 % (11.8-14.3); White Blood Cell 9.5 10^3/uL (4.4-10.8)
[2023-03-06 04:53] LABS: Basophils % (manual) 0 (0.0-2.0); Blast Cells 0; Metamyelocytes % 0; Myelocytes % 0; Promyelocytes % 0; Reactive Lymphocytes 0
[2023-03-06 04:56] LABS: INR 1.93 (0.9-1.15); Partial Thromboplastin Time 42.6 sec (24.6-33.4)
[2023-03-06 05:04] LABS: Potassium 3.8 mmol/L (3.5-5.1)
[2023-03-06 05:12] LABS: Albumin 2.1 g/dL (3.4-5.0); BUN/Creatinine Ratio 13.6 (10.0-20.0); Bilirubin, Total 9.9 mg/dL (0.2-1.0); Calcium 7.9 mg/dL (8.5-10.1); Phosphorus 4.4 mg/dL (2.5-4.90); Total Protein 4.9 g/dL (6.4-8.2)
[2023-03-06] MEDS: METOCLOPRAMIDE HCL 5MG/ml INJ 2ml VIAL IV SCH ×3 (05:36→21:13)
[2023-03-06] MEDS: CALCIUM ACETATE 667 MG CAP NG SCH ×3 (05:37→21:13)
[2023-03-06] MEDS: BUMETANIDE 2.5mg/10ml (0.25 mg/ml) INJ IV SCH ×2 (05:37→17:43)
[2023-03-06] MEDS: InsuLIN REG 1unit/0.01ml Soln (100units/ml) SC SCH ×5 (05:42→23:46)
[2023-03-06 07:59] LABS: Band Neutrophils % (manual) 2; Eosinophils % (manual) 4 (0-7); Lymphocytes % (manual) 28 (10.0-50.0); Monocytes % (manual) 11 (0-12)
[2023-03-06] MEDS: NOREPINEPHRINE BITARTRATE 32 MG in SODIUM CHL 0.9% 218 ML IV SCH (08:15)
[2023-03-06] MEDS: PHENYLEPHRINE INJ 80 MG in SODIUM CHL 0.9% 242 ML IV SCH (08:15)
[2023-03-06] MEDS ORDERED: Jevity 1.2 Cal/Fiber 1 Liter GT SCH (09:30)
[2023-03-06] MEDS ORDERED: PHYTONADIONE (VIT K)10 MG/ML 1ML VIAL SUBCUT ONE (09:30)
[2023-03-06] MEDS ORDERED: phytonadione 10 MG in SODIUM CHL 0.9% 50 ML IV ONE (09:45)
[2023-03-06] MEDS: LACTULOSE 20Gm/30ML SOLN GT SCH ×2 (10:28→21:15)
[2023-03-06] MEDS: AMIODARONE HCL 200 MG TAB PO SCH ×2 (10:28→21:14)
[2023-03-06] MEDS: PANTOPRAZOLE 40 MG/10 ML VIAL INJ IV SCH (10:28)
[2023-03-06] MEDS: DOBUTamine 1000MCG/ML 250 ML IV SCH (13:07)
[2023-03-06] MEDS: TPN PER PHARMACY IV NR ×5 (19:15)
[2023-03-07] VITALS (108 sets, daily range): BP systolic 38–147; BP diastolic 46–86
[2023-03-07] MEDS: LEVALBUTEROL HCL 1.25 MG/3 ML NEB NEB SCH ×5 (01:10→23:43)
[2023-03-07 04:41] LABS: Hemoglobin 11.7 g/dL (13.5-17.5); Red Blood Cells 3.88 10^6/uL (4.5-5.90)
[2023-03-07 04:45] LABS: Hematocrit 33.3 % (41.0-53.0); Mean Corpuscular Hemoglobin 30.2 pg (28.0-32.0); Mean Corpuscular Hgb Conc. 35.1 g/dL (32.0-36.0); Red Cell Distribution Width 17.4 % (11.8-14.3); White Blood Cell 10.9 10^3/uL (4.4-10.8)
[2023-03-07] MEDS: fentaNYL Drip 2500mCg/250mlNS 250 ML IV SCH (04:49)
[2023-03-07 04:52] LABS: Basophils % (manual) 0 (0.0-2.0); Blast Cells 0; Metamyelocytes % 0; Myelocytes % 0; Promyelocytes % 0; Reactive Lymphocytes 0
[2023-03-07 04:58] LABS: Albumin 2.2 g/dL (3.4-5.0); Calcium 8.5 mg/dL (8.5-10.1); Potassium 3.5 mmol/L (3.5-5.1)
[2023-03-07 05:03] LABS: Bilirubin, Total 11.5 mg/dL (0.2-1.0); Total Protein 5.3 g/dL (6.4-8.2)
[2023-03-07] MEDS: ACCU-CHEK COMFORT CURVE STRIP VI SCH ×3 (05:43→18:00)
[2023-03-07] MEDS: InsuLIN REG 1unit/0.01ml Soln (100units/ml) SC SCH ×3 (05:43→18:00)
[2023-03-07] MEDS: CALCIUM ACETATE 667 MG CAP NG SCH ×3 (05:44→22:39)
[2023-03-07] MEDS: BUMETANIDE 2.5mg/10ml (0.25 mg/ml) INJ IV SCH ×2 (05:44→18:45)
[2023-03-07] MEDS: METOCLOPRAMIDE HCL 5MG/ml INJ 2ml VIAL IV SCH ×3 (05:44→22:39)
[2023-03-07] MEDS: DOBUTamine 1000MCG/ML 250 ML IV SCH (05:53)
[2023-03-07] MEDS: IPRATROPIUM BROM 0.5 MG/2.5ML INH SOL NEB SCH ×3 (06:22→18:36)
[2023-03-07] MEDS ORDERED: SODIUM CHL 0.9% 1000 ML BAG XX ONE (07:00)
[2023-03-07] MEDS: PROPOFOL 100 ML IV SCH (07:00)
[2023-03-07 07:19] LABS: Band Neutrophils % (manual) 1; Eosinophils % (manual) 2 (0-7); Lymphocytes % (manual) 25 (10.0-50.0); Monocytes % (manual) 20 (0-12)
[2023-03-07] MEDS: LACTULOSE 20Gm/30ML SOLN GT SCH ×2 (07:50→22:38)
[2023-03-07] MEDS: PHENYLEPHRINE INJ 80 MG in SODIUM CHL 0.9% 242 ML IV SCH (08:15)
[2023-03-07] MEDS: NOREPINEPHRINE BITARTRATE 32 MG in SODIUM CHL 0.9% 218 ML IV SCH (08:15)
[2023-03-07] MEDS: MIDODRINE HCL 10 MG TAB PO SCH ×2 (11:14→18:44)
[2023-03-07] MEDS: AMIODARONE HCL 200 MG TAB PO SCH ×2 (11:15→22:39)
[2023-03-07] MEDS: PANTOPRAZOLE 40 MG/10 ML VIAL INJ IV SCH (11:15)
[2023-03-07] MEDS ORDERED: EPOETIN ALFA-EPBX 4,000 UNIT/ML VIAL SC ONE (21:00)
[2023-03-07] MEDS: MIDAZOLAM DRIP 50 mg/50mL 50 ML IV SCH (22:30)
[2023-03-08] VITALS (68 sets, daily range): BP systolic 93–150; BP diastolic 56–89
[2023-03-08 04:05] LABS: Hemoglobin 13.1 g/dL (13.5-17.5)
[2023-03-08 04:07] LABS: Hematocrit 38.4 % (41.0-53.0); Mean Corpuscular Hemoglobin 29.8 pg (28.0-32.0); Mean Corpuscular Volume 87.7 fL (80.0-100.0); Red Blood Cells 4.38 10^6/uL (4.5-5.90); Red Cell Distribution Width 18.4 % (11.8-14.3); White Blood Cell 9.5 10^3/uL (4.4-10.8)
[2023-03-08 04:10] LABS: Albumin 2.6 g/dL (3.4-5.0); Calcium 8.2 mg/dL (8.5-10.1); Potassium 3.4 mmol/L (3.5-5.1)
[2023-03-08 04:12] LABS: Basophils % (manual) 0 (0.0-2.0); Metamyelocytes % 0; Myelocytes % 0; Promyelocytes % 0; Reactive Lymphocytes 0
[2023-03-08 04:13] LABS: BUN/Creatinine Ratio 19.3 (10.0-20.0); Bilirubin, Total 12.5 mg/dL (0.2-1.0); Blast Cells 0; Total Protein 5.5 g/dL (6.4-8.2)
[2023-03-08] MEDS: fentaNYL Drip 2500mCg/250mlNS 250 ML IV SCH (05:45)
[2023-03-08] MEDS: IPRATROPIUM BROM 0.5 MG/2.5ML INH SOL NEB SCH ×3 (05:56→18:41)
[2023-03-08] MEDS: LEVALBUTEROL HCL 1.25 MG/3 ML NEB NEB SCH ×3 (05:57→18:41)
[2023-03-08] MEDS: InsuLIN REG 1unit/0.01ml Soln (100units/ml) SC SCH ×4 (06:00→17:59)
[2023-03-08] MEDS: BUMETANIDE 2.5mg/10ml (0.25 mg/ml) INJ IV SCH ×2 (06:05→18:06)
[2023-03-08] MEDS: METOCLOPRAMIDE HCL 5MG/ml INJ 2ml VIAL IV SCH ×3 (06:05→22:26)
[2023-03-08] MEDS: MIDODRINE HCL 10 MG TAB PO SCH ×3 (06:06→17:59)
[2023-03-08] MEDS: ACCU-CHEK COMFORT CURVE STRIP VI SCH ×4 (06:06→17:59)
[2023-03-08] MEDS: CALCIUM ACETATE 667 MG CAP NG SCH ×3 (06:06→22:26)
[2023-03-08 07:17] LABS: Band Neutrophils % (manual) 7; Eosinophils % (manual) 6 (0-7); Lymphocytes % (manual) 5 (10.0-50.0); Monocytes % (manual) 8 (0-12)
[2023-03-08] MEDS: NOREPINEPHRINE BITARTRATE 32 MG in SODIUM CHL 0.9% 218 ML IV SCH (08:15)
[2023-03-08] MEDS: PHENYLEPHRINE INJ 80 MG in SODIUM CHL 0.9% 242 ML IV SCH (08:15)
[2023-03-08] MEDS: PANTOPRAZOLE 40 MG/10 ML VIAL INJ IV SCH (08:50)
[2023-03-08] MEDS: AMIODARONE HCL 200 MG TAB PO SCH ×2 (08:53→22:27)
[2023-03-08] MEDS: LACTULOSE 20Gm/30ML SOLN GT SCH ×2 (10:00→22:00)
[2023-03-08 10:11] LABS: INR 1.74 (0.9-1.15); Partial Thromboplastin Time 34.2 sec (24.6-33.4)
[2023-03-08] MEDS: POTASSIUM CHL 20MEQ/100ML 100 ML IV SCH ×4 (11:40→14:42)
[2023-03-08] MEDS ORDERED: ALBUMIN 25% 100 ML IV PRN (14:00)
[2023-03-09] VITALS (44 sets, daily range): BP systolic 96–128; BP diastolic 50–83
[2023-03-09] MEDS: LEVALBUTEROL HCL 1.25 MG/3 ML NEB NEB SCH ×4 (00:24→18:34)
[2023-03-09] MEDS: IPRATROPIUM BROM 0.5 MG/2.5ML INH SOL NEB SCH ×4 (00:25→18:34)
[2023-03-09] MEDS: fentaNYL Drip 2500mCg/250mlNS 250 ML IV SCH (05:45)
[2023-03-09] MEDS: ACCU-CHEK COMFORT CURVE STRIP VI SCH ×4 (06:00→17:58)
[2023-03-09] MEDS: InsuLIN REG 1unit/0.01ml Soln (100units/ml) SC SCH ×4 (06:00→17:58)
[2023-03-09] MEDS: METOCLOPRAMIDE HCL 5MG/ml INJ 2ml VIAL IV SCH ×3 (06:32→21:41)
[2023-03-09] MEDS: BUMETANIDE 2.5mg/10ml (0.25 mg/ml) INJ IV SCH ×2 (06:32→18:03)
[2023-03-09] MEDS: MIDODRINE HCL 10 MG TAB PO SCH ×3 (06:33→17:29)
[2023-03-09] MEDS: CALCIUM ACETATE 667 MG CAP NG SCH ×4 (06:33→21:40)
[2023-03-09] MEDS: PHENYLEPHRINE INJ 80 MG in SODIUM CHL 0.9% 242 ML IV SCH (08:15)
[2023-03-09] MEDS: NOREPINEPHRINE BITARTRATE 32 MG in SODIUM CHL 0.9% 218 ML IV SCH (08:15)
[2023-03-09] MEDS: LACTULOSE 20Gm/30ML SOLN GT SCH ×2 (09:29→21:40)
[2023-03-09] MEDS: PANTOPRAZOLE 40 MG/10 ML VIAL INJ IV SCH (09:29)
[2023-03-09] MEDS: AMIODARONE HCL 200 MG TAB PO SCH ×2 (09:30→21:40)
[2023-03-09 11:07] LABS: Basophils # (auto) 0 10 ^3/uL (0-0.2); Basophils % (auto) 0.3 % (0.0-2.0); Eosinophils # (auto) 0.1 10 ^3/uL (0-0.8); Eosinophils % (auto) 0.5 % (0.0-7.0); Hematocrit 37.6 % (41.0-53.0); Hemoglobin 12.5 g/dL (13.5-17.5); Lymphocytes # (auto) 1.7 10 ^3/uL (0.4-5.4); Lymphocytes % (auto) 12.4 % (10.0-50.0); Mean Corpuscular Hemoglobin 29.3 pg (28.0-32.0); Mean Corpuscular Hgb Conc. 33.3 g/dL (32.0-36.0); Monocytes # (auto) 1.8 10 ^3/uL (0-1.3); Monocytes % (auto) 12.9 % (0.0-12.0); Neutrophils # (auto) 10.2 10 ^3/uL (1.6-8.6); Neutrophils % (auto) 73.9 % (37.0-80.0); Nucleated Red Blood Cells % 0.2 %; Red Blood Cells 4.27 10^6/uL (4.5-5.90); Red Cell Distribution Width 18.2 % (11.8-14.3); White Blood Cell 13.8 10^3/uL (4.4-10.8)
[2023-03-09 11:21] LABS: Albumin 2.7 g/dL (3.4-5.0); Calcium 8.2 mg/dL (8.5-10.1); Potassium 3.1 mmol/L (3.5-5.1)
[2023-03-09 11:27] LABS: Bilirubin, Total 12.5 mg/dL (0.2-1.0); Total Protein 6.1 g/dL (6.4-8.2)
[2023-03-09] MEDS: POTASSIUM CHL 20MEQ/100ML 100 ML IV SCH ×3 (11:58→16:28)
[2023-03-09 19:20] LABS: BUN/Creatinine Ratio 23.6 (10.0-20.0); Potassium 3.7 mmol/L (3.5-5.1)
[2023-03-09] MEDS: MIDAZOLAM DRIP 50 mg/50mL 50 ML IV SCH (22:30)
[2023-03-10] VITALS (42 sets, daily range): BP systolic 105–131; BP diastolic 64–86
[2023-03-10] MEDS: LEVALBUTEROL HCL 1.25 MG/3 ML NEB NEB SCH ×4 (00:04→18:24)
[2023-03-10] MEDS: IPRATROPIUM BROM 0.5 MG/2.5ML INH SOL NEB SCH ×4 (00:04→18:24)
[2023-03-10] MEDS: ACCU-CHEK COMFORT CURVE STRIP VI SCH ×5 (00:27→23:35)
[2023-03-10] MEDS: InsuLIN REG 1unit/0.01ml Soln (100units/ml) SC SCH ×5 (05:58→23:38)
[2023-03-10] MEDS: METOCLOPRAMIDE HCL 5MG/ml INJ 2ml VIAL IV SCH (06:07)
[2023-03-10] MEDS: MIDODRINE HCL 10 MG TAB PO SCH ×3 (06:07→17:55)
[2023-03-10] MEDS: BUMETANIDE 2.5mg/10ml (0.25 mg/ml) INJ IV SCH (06:07)
[2023-03-10] MEDS: CALCIUM ACETATE 667 MG CAP NG SCH ×3 (06:08→21:32)
[2023-03-10] MEDS: NOREPINEPHRINE BITARTRATE 32 MG in SODIUM CHL 0.9% 218 ML IV SCH (08:15)
[2023-03-10] MEDS: PHENYLEPHRINE INJ 80 MG in SODIUM CHL 0.9% 242 ML IV SCH (08:15)
[2023-03-10] MEDS: PROPOFOL 100 ML IV SCH (08:33)
[2023-03-10] MEDS: fentaNYL Drip 2500mCg/250mlNS 250 ML IV SCH (08:33)
[2023-03-10] MEDS: MIDAZOLAM DRIP 50 mg/50mL 50 ML IV SCH ×2 (08:33→22:30)
[2023-03-10] MEDS: AMIODARONE HCL 200 MG TAB PO SCH ×2 (10:22→21:33)
[2023-03-10] MEDS: PANTOPRAZOLE 40 MG/10 ML VIAL INJ IV SCH (10:22)
[2023-03-10] MEDS: LACTULOSE 20Gm/30ML SOLN GT SCH (10:56)
[2023-03-11 05:00] VITALS: BP 119/59
[2023-03-11] MEDS: fentaNYL Drip 2500mCg/250mlNS 250 ML IV SCH (05:45)
[2023-03-11] MEDS: InsuLIN REG 1unit/0.01ml Soln (100units/ml) SC SCH ×3 (06:00→17:17)
[2023-03-11 06:14] LABS: Basophils # (auto) 0.1 10 ^3/uL (0-0.2); Basophils % (auto) 0.5 % (0.0-2.0); Eosinophils # (auto) 0 10 ^3/uL (0-0.8); Eosinophils % (auto) 0.4 % (0.0-7.0); Hematocrit 34.9 % (41.0-53.0); Lymphocytes # (auto) 1.9 10 ^3/uL (0.4-5.4); Lymphocytes % (auto) 14.9 % (10.0-50.0); Mean Corpuscular Hemoglobin 29.9 pg (28.0-32.0); Mean Corpuscular Hgb Conc. 34.2 g/dL (32.0-36.0); Mean Corpuscular Volume 87.3 fL (80.0-100.0); Monocytes # (auto) 1.2 10 ^3/uL (0-1.3); Monocytes % (auto) 9.7 % (0.0-12.0); Neutrophils # (auto) 9.4 10 ^3/uL (1.6-8.6); Neutrophils % (auto) 74.5 % (37.0-80.0); Nucleated Red Blood Cells % 0.1 %; Red Cell Distribution Width 18.8 % (11.8-14.3); White Blood Cell 12.6 10^3/uL (4.4-10.8)
[2023-03-11] MEDS: CALCIUM ACETATE 667 MG CAP NG SCH ×3 (06:22→22:19)
[2023-03-11] MEDS: ACCU-CHEK COMFORT CURVE STRIP VI SCH ×3 (06:22→17:16)
[2023-03-11] MEDS: MIDODRINE HCL 10 MG TAB PO SCH ×3 (06:22→16:26)
[2023-03-11] MEDS: LEVALBUTEROL HCL 1.25 MG/3 ML NEB NEB SCH ×4 (06:29→19:05)
[2023-03-11] MEDS: IPRATROPIUM BROM 0.5 MG/2.5ML INH SOL NEB SCH ×3 (06:29→19:05)
[2023-03-11 06:36] LABS: Albumin 2.6 g/dL (3.4-5.0); BUN/Creatinine Ratio 25.2 (10.0-20.0); Bilirubin, Total 8.8 mg/dL (0.2-1.0); Calcium 7.2 mg/dL (8.5-10.1); Total Protein 5.7 g/dL (6.4-8.2)
[2023-03-11 06:48] LABS: Potassium 2.7 mmol/L (3.5-5.1)
[2023-03-11] MEDS: LORazepam 2MG/ML-1ML VIAL IV PRN ×2 (07:57→16:26)
[2023-03-11 08:00] VITALS: BP 116/75
[2023-03-11 09:00] VITALS: BP 103/58
[2023-03-11] MEDS ORDERED: POTASSIUM CHLORIDE 40 MEQ, LIDOCAINE 1% (LOCAL ANESTH.) 4 ML in SODIUM CHL 0.9% 250 ML IV ONE (09:30)
[2023-03-11] MEDS ORDERED: DOBUTamine 1000MCG/ML 250 ML IV SCH (09:30)
[2023-03-11] MEDS: POTASSIUM EFFERVESENT TAB 25 MEQ PO ONE ×2 (09:30→11:31)
[2023-03-11] MEDS ORDERED: MORPHINE SULFATE INJ 2 MG/ml SYRG IV ONE (09:45)
[2023-03-11] MEDS ORDERED: HEPARIN SODIUM (PORCINE) 5000 UNITS/ML 1ML VIAL SC SCH (10:00)
[2023-03-11] MEDS ORDERED: POTASSIUM CHL 20 Meq TABLET PO ONE (10:00)
[2023-03-11] MEDS ORDERED: BUMETANIDE 2.5mg/10ml (0.25 mg/ml) INJ IV SCH ×2 (10:00)
[2023-03-11] MEDS: AMIODARONE HCL 200 MG TAB PO SCH ×2 (11:27→22:19)
[2023-03-11] MEDS: PANTOPRAZOLE 40 MG/10 ML VIAL INJ IV SCH (11:36)
[2023-03-11 13:00] VITALS: BP 128/79
[2023-03-11] MEDS ORDERED: ONDANSETRON HCL 4 MG/2 ML VIAL IV PRN (14:30)
[2023-03-11] MEDS ORDERED: MORPHINE SULFATE INJ 2 MG/ml SYRG IV PRN (14:30)
[2023-03-11] MEDS ORDERED: ACETAMINOPHEN 500 MG TAB PO PRN (14:30)
[2023-03-11] MEDS ORDERED: HYDROcodone-ACET 5/325MG TAB PO PRN (14:30)
[2023-03-11 17:00] VITALS: BP 133/75
[2023-03-11 22:00] VITALS: BP 130/70
[2023-03-11] MEDS: ACETYLCYSTEINE ORAL for CIN 20%(200MG/ML) 4ML PO SCH (22:22)
[2023-03-12] MEDS: LEVALBUTEROL HCL 1.25 MG/3 ML NEB NEB SCH ×4 (00:01→18:19)
[2023-03-12] MEDS: ACCU-CHEK COMFORT CURVE STRIP VI SCH ×5 (00:13→23:21)
[2023-03-12] MEDS: InsuLIN REG 1unit/0.01ml Soln (100units/ml) SC SCH ×5 (00:15→23:22)
[2023-03-12] MEDS: LORazepam 2MG/ML-1ML VIAL IV PRN ×3 (01:52→15:54)
[2023-03-12 05:20] VITALS: BP 128/70
[2023-03-12 05:47] LABS: Basophils # (auto) 0.1 10 ^3/uL (0-0.2); Basophils % (auto) 0.9 % (0.0-2.0); Eosinophils # (auto) 0.1 10 ^3/uL (0-0.8); Eosinophils % (auto) 1.4 % (0.0-7.0); Hematocrit 32.6 % (41.0-53.0); Hemoglobin 11.3 g/dL (13.5-17.5); Lymphocytes % (auto) 21.1 % (10.0-50.0); Mean Corpuscular Hgb Conc. 34.7 g/dL (32.0-36.0); Mean Corpuscular Volume 86.4 fL (80.0-100.0); Monocytes # (auto) 1.1 10 ^3/uL (0-1.3); Monocytes % (auto) 11.6 % (0.0-12.0); Neutrophils # (auto) 6.2 10 ^3/uL (1.6-8.6); Red Blood Cells 3.77 10^6/uL (4.5-5.90); Red Cell Distribution Width 18.9 % (11.8-14.3); White Blood Cell 9.6 10^3/uL (4.4-10.8)
[2023-03-12 06:00] LABS: Albumin 2.3 g/dL (3.4-5.0); Calcium 6.8 mg/dL (8.5-10.1)
[2023-03-12 06:03] LABS: BUN/Creatinine Ratio 25.9 (10.0-20.0); Bilirubin, Total 7.5 mg/dL (0.2-1.0); Total Protein 5.3 g/dL (6.4-8.2)
[2023-03-12] MEDS: MIDODRINE HCL 10 MG TAB PO SCH ×3 (06:03→19:19)
[2023-03-12] MEDS: CALCIUM ACETATE 667 MG CAP NG SCH ×3 (06:03→23:12)
[2023-03-12 06:30] LABS: Potassium 2.9 mmol/L (3.5-5.1)
[2023-03-12 06:36] LABS: INR 1.68 (0.9-1.15); Partial Thromboplastin Time 33.3 sec (24.6-33.4)
[2023-03-12] MEDS: IPRATROPIUM BROM 0.5 MG/2.5ML INH SOL NEB SCH ×4 (07:14→18:20)
[2023-03-12 08:00] VITALS: BP 113/74
[2023-03-12] MEDS: PANTOPRAZOLE 40 MG/10 ML VIAL INJ IV SCH (09:56)
[2023-03-12] MEDS: AMIODARONE HCL 200 MG TAB PO SCH ×2 (09:57→23:07)
[2023-03-12] MEDS: ACETYLCYSTEINE ORAL for CIN 20%(200MG/ML) 4ML PO SCH ×2 (10:00→22:00)
[2023-03-12] MEDS: POTASSIUM CHL 20MEQ/100ML 100 ML IV SCH ×2 (10:45→16:08)
[2023-03-12] MEDS ORDERED: POTASSIUM CHL 20MEQ/100ML 100 ML IV ONE ×2 (15:46→17:22)
[2023-03-12 20:00] VITALS: BP 124/80
[2023-03-12 21:34] VITALS: BP 124/80
[2023-03-13] MEDS: LEVALBUTEROL HCL 1.25 MG/3 ML NEB NEB SCH ×4 (00:07→19:39)
[2023-03-13] MEDS: IPRATROPIUM BROM 0.5 MG/2.5ML INH SOL NEB SCH ×4 (00:07→19:39)
[2023-03-13 04:40] VITALS: BP 118/74
[2023-03-13 05:36] LABS: BUN/Creatinine Ratio 23.1 (10.0-20.0); Calcium 7.5 mg/dL (8.5-10.1); Potassium 3.5 mmol/L (3.5-5.1)
[2023-03-13] MEDS: InsuLIN REG 1unit/0.01ml Soln (100units/ml) SC SCH ×4 (06:00→22:32)
[2023-03-13] MEDS: ACCU-CHEK COMFORT CURVE STRIP VI SCH ×4 (06:00→22:32)
[2023-03-13] MEDS: CALCIUM ACETATE 667 MG CAP NG SCH ×3 (06:23→22:00)
[2023-03-13] MEDS: MIDODRINE HCL 10 MG TAB PO SCH ×3 (06:23→18:00)
[2023-03-13 08:00] VITALS: BP 105/67
[2023-03-13] MEDS: AMIODARONE HCL 200 MG TAB PO SCH ×2 (08:29→22:00)
[2023-03-13] MEDS: ACETYLCYSTEINE ORAL for CIN 20%(200MG/ML) 4ML PO SCH ×2 (08:31→22:32)
[2023-03-13] MEDS: PANTOPRAZOLE 40 MG/10 ML VIAL INJ IV SCH (08:31)
[2023-03-13] MEDS: LORazepam 2MG/ML-1ML VIAL IV PRN ×2 (10:36→15:47)
[2023-03-13 13:00] VITALS: BP 111/63
[2023-03-13 13:35] VITALS: BP 118/74
[2023-03-13] MEDS ORDERED: HALOPERIDOL LACTATE 5 MG/ML INJ VIAL IM PRN (16:00)
[2023-03-13 16:59] VITALS: BP 103/58
[2023-03-13] MEDS ORDERED: QUEtiapine FUMARATE 25 MG TAB PO SCH (22:00)
[2023-03-14] MEDS: ACCU-CHEK COMFORT CURVE STRIP VI SCH ×4 (05:32→23:44)
[2023-03-14] MEDS: CALCIUM ACETATE 667 MG CAP NG SCH ×3 (05:33→21:58)
[2023-03-14] MEDS: InsuLIN REG 1unit/0.01ml Soln (100units/ml) SC SCH ×4 (05:33→23:44)
[2023-03-14] MEDS: MIDODRINE HCL 10 MG TAB PO SCH ×3 (05:34→18:13)
[2023-03-14] MEDS: LEVALBUTEROL HCL 1.25 MG/3 ML NEB NEB SCH (07:18)
[2023-03-14] MEDS: IPRATROPIUM BROM 0.5 MG/2.5ML INH SOL NEB SCH (07:18)
[2023-03-14 08:00] VITALS: BP 109/58
[2023-03-14] MEDS ORDERED: IPRATROPIUM BROM 0.5 MG/2.5ML INH SOL NEB PRN (10:15)
[2023-03-14] MEDS ORDERED: ALBUTEROL SULF 2.5 MG/0.5ML(0.5%) NEB SOLN NEB PRN (10:15)
[2023-03-14] MEDS: AMIODARONE HCL 200 MG TAB PO SCH ×2 (10:59→21:58)
[2023-03-14] MEDS: PANTOPRAZOLE 40 MG/10 ML VIAL INJ IV SCH (10:59)
[2023-03-14 13:00] VITALS: BP_SYST 110; BP_SYST 98; BP_DIAS 76; BP_DIAS 77
[2023-03-14] MEDS ORDERED: NOREPINEPHRINE 8 MG/250ML KIT 250 ML IV ONE (13:05)
[2023-03-14 17:00] VITALS: BP 110/76
[2023-03-14] MEDS: LORazepam 2MG/ML-1ML VIAL IV PRN (18:18)
[2023-03-15] MEDS: ACCU-CHEK COMFORT CURVE STRIP VI SCH ×3 (06:00→18:01)
[2023-03-15] MEDS: CALCIUM ACETATE 667 MG CAP NG SCH ×3 (06:00→21:53)
[2023-03-15] MEDS: InsuLIN REG 1unit/0.01ml Soln (100units/ml) SC SCH ×3 (06:00→18:00)
[2023-03-15] MEDS: MIDODRINE HCL 10 MG TAB PO SCH ×3 (06:00→18:14)
[2023-03-15 07:16] LABS: Basophils # (auto) 0.1 10 ^3/uL (0-0.2); Basophils % (auto) 1.1 % (0.0-2.0); Eosinophils # (auto) 0.1 10 ^3/uL (0-0.8); Eosinophils % (auto) 1.4 % (0.0-7.0); Hemoglobin 11.7 g/dL (13.5-17.5); Lymphocytes # (auto) 3.4 10 ^3/uL (0.4-5.4); Lymphocytes % (auto) 38.7 % (10.0-50.0); Mean Corpuscular Hemoglobin 29.7 pg (28.0-32.0); Mean Corpuscular Hgb Conc. 34.4 g/dL (32.0-36.0); Mean Corpuscular Volume 86.5 fL (80.0-100.0); Monocytes # (auto) 1.2 10 ^3/uL (0-1.3); Monocytes % (auto) 13.5 % (0.0-12.0); Neutrophils % (auto) 45.3 % (37.0-80.0); Nucleated Red Blood Cells % 0.2 %; Red Blood Cells 3.93 10^6/uL (4.5-5.90); White Blood Cell 8.8 10^3/uL (4.4-10.8)
[2023-03-15 07:21] LABS: Red Cell Distribution Width 20.1 % (11.8-14.3)
[2023-03-15 07:45] LABS: BUN/Creatinine Ratio 20.5 (10.0-20.0); Calcium 7.2 mg/dL (8.5-10.1); Potassium 3.8 mmol/L (3.5-5.1)
[2023-03-15 09:00] VITALS: BP 95/57
[2023-03-15] MEDS: PANTOPRAZOLE 40 MG/10 ML VIAL INJ IV SCH (10:28)
[2023-03-15] MEDS: AMIODARONE HCL 200 MG TAB PO SCH ×2 (10:29→21:53)
[2023-03-15] MEDS: LORazepam 2MG/ML-1ML VIAL IV PRN ×2 (11:52→16:01)
[2023-03-15 13:38] LABS: INR 1.31 (0.9-1.15)
[2023-03-15 13:45] LABS: Albumin 2.1 g/dL (3.4-5.0); Calcium 7.5 mg/dL (8.5-10.1); Potassium 3.9 mmol/L (3.5-5.1)
[2023-03-15 13:47] LABS: BUN/Creatinine Ratio 20.4 (10.0-20.0)
[2023-03-15 13:50] LABS: Bilirubin, Total 4.4 mg/dL (0.2-1.0); Total Protein 5.8 g/dL (6.4-8.2)
[2023-03-15 14:23] VITALS: BP 94/58
[2023-03-16 05:00] VITALS: BP 95/67
[2023-03-16] MEDS: CALCIUM ACETATE 667 MG CAP NG SCH ×3 (06:00→21:12)
[2023-03-16] MEDS: ACCU-CHEK COMFORT CURVE STRIP VI SCH ×4 (06:00→18:02)
[2023-03-16] MEDS: MIDODRINE HCL 10 MG TAB PO SCH ×3 (06:00→18:01)
[2023-03-16] MEDS: InsuLIN REG 1unit/0.01ml Soln (100units/ml) SC SCH ×5 (06:00→21:31)
[2023-03-16] MEDS: PANTOPRAZOLE 40 MG/10 ML VIAL INJ IV SCH (08:40)
[2023-03-16] MEDS: LORazepam 2MG/ML-1ML VIAL IV PRN ×2 (08:40→21:08)
[2023-03-16] MEDS: AMIODARONE HCL 200 MG TAB PO SCH ×2 (08:41→21:08)
[2023-03-16 09:00] VITALS: BP 90/63
[2023-03-16 11:29] VITALS: BP 94/61
[2023-03-16 13:00] VITALS: BP 96/69
[2023-03-16 17:00] VITALS: BP 102/70
[2023-03-16 22:00] VITALS: BP 107/73
[2023-03-16 23:27] LABS: Calcium 7.1 mg/dL (8.5-10.1); Potassium 4.3 mmol/L (3.5-5.1)
[2023-03-16 23:30] LABS: BUN/Creatinine Ratio 17.4 (10.0-20.0)
[2023-03-16 23:33] LABS: Bilirubin, Total 3.1 mg/dL (0.2-1.0); Total Protein 5.6 g/dL (6.4-8.2)
[2023-03-17] MEDS: InsuLIN REG 1unit/0.01ml Soln (100units/ml) SC SCH ×2 (05:41→12:49)
[2023-03-17] MEDS: MIDODRINE HCL 10 MG TAB PO SCH ×2 (05:41→12:45)
[2023-03-17] MEDS: CALCIUM ACETATE 667 MG CAP NG SCH (05:41)
[2023-03-17] MEDS: ACCU-CHEK COMFORT CURVE STRIP VI SCH ×3 (06:00→12:48)
[2023-03-17 07:58] VITALS: BP 110/78
[2023-03-17] MEDS: AMIODARONE HCL 200 MG TAB PO SCH (10:37)
[2023-03-17] MEDS: PANTOPRAZOLE 40 MG/10 ML VIAL INJ IV SCH (10:37)
[2023-03-17] MEDS ORDERED: QUEtiapine FUMARATE 25 MG TAB PO SCH (22:00)
== END 2023-03-17 13:30 | disposition left against medical advice (07) | DRG 130 ==
LOC: ER 21:59 → EDBD 21:59 → OVERFLOW 02-24 06:30 → ICU WEST 02-24 09:01 → TELE-EAST 03-11 02:00 → TELE-CENTR 03-14 08:49
PROVIDERS: ADMIT Nurse Practitioner Family; ATTEND Nurse Practitioner Acute Care
PROC: 5A1955Z Respiratory Ventilation, Greater than 96 Consecutive Hours (ICD-10-PCS; principal; 2023-02-24)
PROC: 0BH17EZ Insertion of Endotracheal Airway into Trachea, Via Natural or Artificial Opening (ICD-10-PCS; 2023-02-24)
PROC: 02HV33Z Insertion of Infusion Device into Superior Vena Cava, Percutaneous Approach (ICD-10-PCS; 2023-02-24)
PROC: B548ZZA Ultrasonography of Superior Vena Cava, Guidance (ICD-10-PCS; 2023-02-24)
PROC: 04HY32Z Insertion of Monitoring Device into Lower Artery, Percutaneous Approach (ICD-10-PCS; 2023-02-25)
PROC: 06HY33Z Insertion of Infusion Device into Lower Vein, Percutaneous Approach (ICD-10-PCS; 2023-02-27)
PROC: B54CZZA Ultrasonography of Left Lower Extremity Veins, Guidance (ICD-10-PCS; 2023-02-27)
PROC: 5A1D70Z Performance of Urinary Filtration, Intermittent, Less than 6 Hours Per Day (ICD-10-PCS; 2023-02-28)
PROC: 5A1D70Z Performance of Urinary Filtration, Intermittent, Less than 6 Hours Per Day (ICD-10-PCS; 2023-03-03)
PROC: 5A1D70Z Performance of Urinary Filtration, Intermittent, Less than 6 Hours Per Day (ICD-10-PCS; 2023-03-05)
PROC: 30233R1 Transfusion of Nonautologous Platelets into Peripheral Vein, Percutaneous Approach (ICD-10-PCS; 2023-03-05)
PROC: 5A1D70Z Performance of Urinary Filtration, Intermittent, Less than 6 Hours Per Day (ICD-10-PCS; 2023-03-07)
DX: J96.01 Acute respiratory failure with hypoxia (principal); K72.00 Acute and subacute hepatic failure without coma; N17.0 Acute kidney failure with tubular necrosis; R57.0 Cardiogenic shock; G93.41 Metabolic encephalopathy; I50.23 Acute on chronic systolic (congestive) heart failure; R18.8 Other ascites; I48.92 Unspecified atrial flutter; I48.91 Unspecified atrial fibrillation; D69.6 Thrombocytopenia, unspecified; E87.20 Acidosis, unspecified; E88.09 Other disorders of plasma-protein metabolism, not elsewhere classified; I42.0 Dilated cardiomyopathy; E16.2 Hypoglycemia, unspecified; F15.10 Other stimulant abuse, uncomplicated; F17.210 Nicotine dependence, cigarettes, uncomplicated; I11.0 Hypertensive heart disease with heart failure; I47.20 Ventricular tachycardia, unspecified; K74.60 Unspecified cirrhosis of liver; F43.20 Adjustment disorder, unspecified; Z53.29 Procedure and treatment not carried out because of patient's decision for other reasons; Z59.00 Homelessness unspecified; Z78.1 Physical restraint status; Z91.199 Patient's noncompliance with other medical treatment and regimen due to unspecified reason; Z99.11 Dependence on respirator [ventilator] status
CPT/HCPCS: 36415; 36600; 70450; 71045; 74176; 76705; 76937; 80048; 80053; 80061; 80074; 80307; 80320; 81001; 82140; 82306; 82550; 82570; 82728; 82805; 82962; 83036; 83540; 83550; 83605; 83735; 83880; 83970; 84100; 84156; 84300; 84443; 84478; 84484; 85007; 85025; 85027; 85048; 85610; 85730; 86850; 86900; 86901; 87040; 87045; 87081; 87427; 87493; 90935; 93005; 93306; 94003; 94640; 96361; 96365; 96375; 96376; 97163; 99291; A4565; A4618; C9113; G0378; J0171; J1265; J1642; J1815; J2001; J2185; J2250; J2405; J2704; J3430; J3480; J3490; J7060; J7131; P9047

== ENCOUNTER 2023-04-24 20:18 | Inpatient (IN) | payer MEDICAID ==
[~2023-04-24] VITALS: Ht 198.1 cm; Wt 85.6 kg
[2023-04-24] MEDS ORDERED: ALBUTEROL SULF 2.5 MG/0.5ML(0.5%) NEB SOLN NEB ONE (20:30)
[2023-04-24] MEDS ORDERED: IPRATROPIUM BROM 0.5 MG/2.5ML INH SOL NEB ONE (20:30)
[2023-04-24 21:46] LABS: Basophils # (auto) 0.1 10 ^3/uL (0-0.2); Basophils % (auto) 1.9 % (0.0-2.0); Eosinophils # (auto) 0.1 10 ^3/uL (0-0.8); Hemoglobin 12.5 g/dL (13.5-17.5); Lymphocytes # (auto) 2.4 10 ^3/uL (0.4-5.4); Lymphocytes % (auto) 36.2 % (10.0-50.0); Mean Corpuscular Hemoglobin 31.2 pg (28.0-32.0); Mean Corpuscular Hgb Conc. 32.9 g/dL (32.0-36.0); Mean Corpuscular Volume 94.9 fL (80.0-100.0); Monocytes # (auto) 0.4 10 ^3/uL (0-1.3); Monocytes % (auto) 6.6 % (0.0-12.0); Neutrophils # (auto) 3.5 10 ^3/uL (1.6-8.6); Neutrophils % (auto) 53.3 % (37.0-80.0); Nucleated Red Blood Cells % 0.2 %; White Blood Cell 6.5 10^3/uL (4.4-10.8)
[2023-04-24 21:49] LABS: Red Cell Distribution Width 20.7 % (11.8-14.3)
[2023-04-24 21:55] LABS: Albumin 3.3 g/dL (3.4-5.0); Calcium 8.6 mg/dL (8.5-10.1)
[2023-04-24 21:57] LABS: Lactic Acid w/Reflex 2.4 mmol/L (0.4-2.0)
[2023-04-24 21:59] LABS: Bilirubin, Total 0.8 mg/dL (0.2-1.0); CRP High Sensitivity 0.13 mg/dL (< 0.3); Total Protein 7.6 g/dL (6.4-8.2)
[2023-04-24] MEDS ORDERED: SODIUM CHLORIDE 0.9% 1,000 ML IV ONE (22:30)
[2023-04-24 23:43] VITALS: PULSE 105; RESP 24; O2SAT 96
[2023-04-25] VITALS (8 sets, daily range): BP systolic 95–104; BP diastolic 60–73; PULSE 73–106; RESP 17–21; TEMP 97.5–97.9; O2SAT 92–100
[2023-04-25] MEDS ORDERED: FUROSEMIDE 40 MG/4 ML VIAL IV ONE
[2023-04-25] MEDS ORDERED: DOCUSATE SOD 100 MG CAP PO PRN (00:30)
[2023-04-25] MEDS ORDERED: NITROGLYCERIN 0.4 MG SL TAB SL PRN (00:30)
[2023-04-25] MEDS ORDERED: ACETAMINOPHEN 325 MG TAB PO PRN (00:30)
[2023-04-25] MEDS ORDERED: HYDROcodone-ACET 5/325MG TAB PO PRN (00:30)
[2023-04-25] MEDS ORDERED: ONDANSETRON HCL 4 MG/2 ML VIAL IV PRN (00:30)
[2023-04-25] MEDS ORDERED: MORPHINE SULFATE INJ 2 MG/ml SYRG IV PRN (00:30)
[2023-04-25 05:23] LABS: Basophils # (auto) 0.1 10 ^3/uL (0-0.2); Basophils % (auto) 1.9 % (0.0-2.0); Eosinophils # (auto) 0.1 10 ^3/uL (0-0.8); Eosinophils % (auto) 1.7 % (0.0-7.0); Hematocrit 38.6 % (41.0-53.0); Hemoglobin 13.1 g/dL (13.5-17.5); Lymphocytes # (auto) 2.6 10 ^3/uL (0.4-5.4); Lymphocytes % (auto) 41.5 % (10.0-50.0); Mean Corpuscular Hemoglobin 31.8 pg (28.0-32.0); Mean Corpuscular Volume 93.5 fL (80.0-100.0); Monocytes # (auto) 0.4 10 ^3/uL (0-1.3); Monocytes % (auto) 7.1 % (0.0-12.0); Neutrophils % (auto) 47.8 % (37.0-80.0); Nucleated Red Blood Cells % 0.2 %; Red Blood Cells 4.13 10^6/uL (4.5-5.90); White Blood Cell 6.3 10^3/uL (4.4-10.8)
[2023-04-25 05:55] LABS: Red Cell Distribution Width 20.5 % (11.8-14.3)
[2023-04-25] MEDS: SODIUM CHLOR 0.9% PF (SALINE LOCK) 10ML VIAL/SYR IV SCH ×3 (06:04→21:55)
[2023-04-25 07:19] LABS: Calcium 8.1 mg/dL (8.5-10.1)
[2023-04-25 07:22] LABS: BUN/Creatinine Ratio 25.9 (10.0-20.0); Bilirubin, Total 0.8 mg/dL (0.2-1.0); Total Protein 7.4 g/dL (6.4-8.2)
[2023-04-25 07:27] LABS: Potassium 4.3 mmol/L (3.5-5.1)
[2023-04-25] MEDS: ASPirin 81 mg TAB PO SCH (09:38)
[2023-04-25] MEDS: CARVEDILOL 3.125 MG TAB PO SCH ×2 (09:39→21:56)
[2023-04-25] MEDS: FUROSEMIDE 40 MG/4 ML VIAL IV SCH (09:40)
[2023-04-25] MEDS: HYDROcodone-ACET 5/325MG TAB PO PRN ×2 (12:38→20:51)
[2023-04-25] MEDS: SERTRALINE HCL 50 MG TAB PO SCH (18:43)
[2023-04-25 19:20] LABS: Alcohol, Urine < 3.0 mg/dL (0-10); Amphetamine Screen, Urine NEGATIVE (NEGATIVE); Barbiturate Scree,Urine NEGATIVE (NEGATIVE); Benzodiazephine Screen, Urine NEGATIVE (NEGATIVE); Cannabinoid Screen, Urine POSITIVE (NEGATIVE); Cocaine Screen, Urine NEGATIVE (NEGATIVE); Opiate Scree,Urine NEGATIVE (NEGATIVE); Phencyclidine Screen, Urine NEGATIVE (NEGATIVE)
[2023-04-25] MEDS: ATORVASTATIN 20 MG TAB PO SCH (21:55)
[2023-04-25] MEDS: QUEtiapine FUMARATE 25 MG TAB PO SCH (23:08)
[2023-04-26] VITALS (7 sets, daily range): BP systolic 86–111; BP diastolic 56–67; PULSE 84–99; RESP 19–22; TEMP 97.5–97.9; O2SAT 98–99
[2023-04-26 06:16] LABS: Basophils # (auto) 0.1 10 ^3/uL (0-0.2); Basophils % (auto) 1.5 % (0.0-2.0); Eosinophils # (auto) 0.1 10 ^3/uL (0-0.8); Eosinophils % (auto) 1.7 % (0.0-7.0); Hematocrit 42.6 % (41.0-53.0); Hemoglobin 14.2 g/dL (13.5-17.5); Mean Corpuscular Hemoglobin 31.1 pg (28.0-32.0); Mean Corpuscular Hgb Conc. 33.3 g/dL (32.0-36.0); Mean Corpuscular Volume 93.5 fL (80.0-100.0); Monocytes # (auto) 0.4 10 ^3/uL (0-1.3); Monocytes % (auto) 6.7 % (0.0-12.0); Neutrophils # (auto) 2.7 10 ^3/uL (1.6-8.6); Neutrophils % (auto) 43.1 % (37.0-80.0); Nucleated Red Blood Cells % 0.3 %; Red Blood Cells 4.56 10^6/uL (4.5-5.90); White Blood Cell 6.3 10^3/uL (4.4-10.8)
[2023-04-26 06:22] LABS: Red Cell Distribution Width 20.5 % (11.8-14.3)
[2023-04-26] MEDS: SODIUM CHLOR 0.9% PF (SALINE LOCK) 10ML VIAL/SYR IV SCH ×3 (06:35→22:00)
[2023-04-26 06:59] LABS: Potassium 4.6 mmol/L (3.5-5.1)
[2023-04-26 07:12] LABS: BUN/Creatinine Ratio 32.9 (10.0-20.0); Bilirubin, Total 0.6 mg/dL (0.2-1.0); Calcium 8.3 mg/dL (8.5-10.1)
[2023-04-26] MEDS: ASPirin 81 mg TAB PO SCH (09:32)
[2023-04-26] MEDS: SERTRALINE HCL 50 MG TAB PO SCH (09:32)
[2023-04-26] MEDS: HYDROcodone-ACET 5/325MG TAB PO PRN ×2 (09:32→20:05)
[2023-04-26] MEDS: FUROSEMIDE 40 MG/4 ML VIAL IV SCH (09:33)
[2023-04-26] MEDS: CARVEDILOL 3.125 MG TAB PO SCH ×2 (09:33→22:00)
[2023-04-26] MEDS: QUEtiapine FUMARATE 25 MG TAB PO SCH (22:00)
[2023-04-26] MEDS: ATORVASTATIN 20 MG TAB PO SCH (22:00)
[2023-04-27] VITALS (9 sets, daily range): BP systolic 100–110; BP diastolic 64–77; PULSE 78–112; RESP 19–22; TEMP 98.3–98.7; O2SAT 100
[2023-04-27] MEDS: SODIUM CHLOR 0.9% PF (SALINE LOCK) 10ML VIAL/SYR IV SCH ×3 (06:29→22:04)
[2023-04-27] MEDS: SERTRALINE HCL 50 MG TAB PO SCH (09:36)
[2023-04-27] MEDS: ASPirin 81 mg TAB PO SCH (09:36)
[2023-04-27] MEDS: CARVEDILOL 3.125 MG TAB PO SCH ×2 (09:37→22:04)
[2023-04-27] MEDS: FUROSEMIDE 40 MG TAB PO SCH (09:37)
[2023-04-27] MEDS: HYDROcodone-ACET 5/325MG TAB PO PRN ×2 (09:37→16:28)
[2023-04-27] MEDS: ALBUTEROL SULF 2.5 MG/0.5ML(0.5%) NEB SOLN NEB PRN (10:49)
[2023-04-27] MEDS: ATORVASTATIN 20 MG TAB PO SCH (22:03)
[2023-04-27] MEDS: QUEtiapine FUMARATE 25 MG TAB PO SCH (22:04)
[2023-04-28] VITALS (10 sets, daily range): BP systolic 81–145; BP diastolic 53–70; PULSE 73–104; RESP 18–22; TEMP 96.6–98.8; O2SAT 99–100
[2023-04-28] MEDS: SODIUM CHLOR 0.9% PF (SALINE LOCK) 10ML VIAL/SYR IV SCH ×3 (06:46→21:11)
[2023-04-28] MEDS: SERTRALINE HCL 50 MG TAB PO SCH (09:09)
[2023-04-28] MEDS: ASPirin 81 mg TAB PO SCH (09:09)
[2023-04-28] MEDS: HYDROcodone-ACET 5/325MG TAB PO PRN ×2 (09:09→20:42)
[2023-04-28] MEDS: CARVEDILOL 3.125 MG TAB PO SCH ×2 (10:00→21:11)
[2023-04-28] MEDS: FUROSEMIDE 40 MG TAB PO SCH (10:00)
[2023-04-28] MEDS: QUEtiapine FUMARATE 25 MG TAB PO SCH (21:10)
[2023-04-28] MEDS: ATORVASTATIN 20 MG TAB PO SCH (21:11)
[2023-04-28 23:31] LABS: Alcohol, Urine < 3.0 mg/dL (0-10); Amphetamine Screen, Urine NEGATIVE (NEGATIVE); Barbiturate Scree,Urine NEGATIVE (NEGATIVE); Benzodiazephine Screen, Urine NEGATIVE (NEGATIVE); Cannabinoid Screen, Urine NEGATIVE (NEGATIVE); Cocaine Screen, Urine NEGATIVE (NEGATIVE); Opiate Scree,Urine NEGATIVE (NEGATIVE); Phencyclidine Screen, Urine NEGATIVE (NEGATIVE)
[2023-04-29 05:00] VITALS: BP 102/55; PULSE 82; RESP 19; TEMP 98.6; O2SAT 97
[2023-04-29] MEDS: SODIUM CHLOR 0.9% PF (SALINE LOCK) 10ML VIAL/SYR IV SCH ×3 (06:14→22:02)
[2023-04-29 08:00] VITALS: PULSE 88
[2023-04-29] MEDS: CARVEDILOL 3.125 MG TAB PO SCH ×2 (10:00→22:03)
[2023-04-29] MEDS: ASPirin 81 mg TAB PO SCH (10:20)
[2023-04-29] MEDS: SERTRALINE HCL 50 MG TAB PO SCH (10:20)
[2023-04-29] MEDS: FUROSEMIDE 20 MG TAB PO SCH (10:20)
[2023-04-29] MEDS: HYDROcodone-ACET 5/325MG TAB PO PRN ×2 (14:03→20:37)
[2023-04-29] MEDS: ALBUTEROL SULF 2.5 MG/0.5ML(0.5%) NEB SOLN NEB PRN (18:14)
[2023-04-29 18:15] VITALS: PULSE 88; RESP 20; O2SAT 100
[2023-04-29 18:21] VITALS: PULSE 85; RESP 20; O2SAT 100
[2023-04-29 20:00] VITALS: PULSE 100
[2023-04-29 22:00] VITALS: BP 106/62; PULSE 96; RESP 20; TEMP 97.9; O2SAT 100
[2023-04-29] MEDS: ATORVASTATIN 20 MG TAB PO SCH (22:02)
[2023-04-29] MEDS: QUEtiapine FUMARATE 25 MG TAB PO SCH (22:03)
[2023-04-30] VITALS (7 sets, daily range): BP systolic 116–120; BP diastolic 70–79; PULSE 79–99; RESP 16–18; TEMP 97.7–98.1; O2SAT 95–100
[2023-04-30] MEDS: SODIUM CHLOR 0.9% PF (SALINE LOCK) 10ML VIAL/SYR IV SCH ×3 (05:29→21:57)
[2023-04-30] MEDS: ASPirin 81 mg TAB PO SCH (08:40)
[2023-04-30] MEDS: SERTRALINE HCL 50 MG TAB PO SCH (08:43)
[2023-04-30] MEDS: FUROSEMIDE 20 MG TAB PO SCH (08:43)
[2023-04-30] MEDS: CARVEDILOL 3.125 MG TAB PO SCH ×2 (08:44→21:57)
[2023-04-30] MEDS: HYDROcodone-ACET 5/325MG TAB PO PRN ×2 (13:50→20:59)
[2023-04-30 15:36] LABS: Basophils # (auto) 0.1 10 ^3/uL (0-0.2); Eosinophils # (auto) 0.1 10 ^3/uL (0-0.8); Eosinophils % (auto) 2.1 % (0.0-7.0); Hematocrit 40.7 % (41.0-53.0); Hemoglobin 13.6 g/dL (13.5-17.5); Lymphocytes # (auto) 2.4 10 ^3/uL (0.4-5.4); Mean Corpuscular Hemoglobin 31.4 pg (28.0-32.0); Mean Corpuscular Hgb Conc. 33.5 g/dL (32.0-36.0); Mean Corpuscular Volume 93.9 fL (80.0-100.0); Monocytes # (auto) 0.5 10 ^3/uL (0-1.3); Monocytes % (auto) 9.5 % (0.0-12.0); Neutrophils % (auto) 38.4 % (37.0-80.0); Nucleated Red Blood Cells % 0.2 %; Red Blood Cells 4.33 10^6/uL (4.5-5.90); Red Cell Distribution Width 19.7 % (11.8-14.3); White Blood Cell 5.1 10^3/uL (4.4-10.8)
[2023-04-30] MEDS: ATORVASTATIN 20 MG TAB PO SCH (21:57)
[2023-04-30] MEDS: QUEtiapine FUMARATE 25 MG TAB PO SCH (21:57)
[2023-05-01] VITALS (9 sets, daily range): BP systolic 100–133; BP diastolic 64–79; PULSE 58–95; RESP 14–20; TEMP 97.6–98.4; O2SAT 96–100
[2023-05-01] MEDS: SODIUM CHLOR 0.9% PF (SALINE LOCK) 10ML VIAL/SYR IV SCH ×3 (06:00→22:00)
[2023-05-01] MEDS: ASPirin 81 mg TAB PO SCH (08:24)
[2023-05-01] MEDS: SERTRALINE HCL 50 MG TAB PO SCH (08:24)
[2023-05-01] MEDS: FUROSEMIDE 20 MG TAB PO SCH (08:25)
[2023-05-01] MEDS: CARVEDILOL 3.125 MG TAB PO SCH ×2 (08:31→22:42)
[2023-05-01] MEDS: HYDROcodone-ACET 5/325MG TAB PO PRN ×2 (15:55→22:42)
[2023-05-01] MEDS: ATORVASTATIN 20 MG TAB PO SCH (22:41)
[2023-05-01] MEDS: QUEtiapine FUMARATE 25 MG TAB PO SCH (22:42)
[2023-05-02 05:00] VITALS: BP 92/63; PULSE 60; RESP 18; TEMP 97.4; O2SAT 96
[2023-05-02] MEDS: SODIUM CHLOR 0.9% PF (SALINE LOCK) 10ML VIAL/SYR IV SCH ×3 (06:00→21:15)
[2023-05-02 08:00] VITALS: PULSE 79; PULSE 88; RESP 18
[2023-05-02] MEDS: FUROSEMIDE 20 MG TAB PO SCH (08:23)
[2023-05-02] MEDS: CARVEDILOL 3.125 MG TAB PO SCH ×2 (08:24→21:14)
[2023-05-02] MEDS: ASPirin 81 mg TAB PO SCH (08:24)
[2023-05-02] MEDS: SERTRALINE HCL 50 MG TAB PO SCH (08:24)
[2023-05-02] MEDS: HYDROcodone-ACET 5/325MG TAB PO PRN ×2 (10:04→21:11)
[2023-05-02 13:00] VITALS: BP 105/69; PULSE 97; RESP 21; TEMP 97.5; O2SAT 99
[2023-05-02 17:57] VITALS: BP 101/60; PULSE 97; RESP 19; TEMP 98.2; O2SAT 98
[2023-05-02 20:00] VITALS: PULSE 93; PULSE 98; RESP 17
[2023-05-02] MEDS: ATORVASTATIN 20 MG TAB PO SCH (21:11)
[2023-05-02 22:00] VITALS: BP 120/78; PULSE 89; RESP 20; TEMP 98.5; O2SAT 100
[2023-05-02] MEDS: QUEtiapine FUMARATE 25 MG TAB PO SCH (22:10)
[2023-05-03] VITALS (8 sets, daily range): BP systolic 97–120; BP diastolic 53–72; PULSE 62–101; RESP 16–20; TEMP 97.6–98.9; O2SAT 97–100
[2023-05-03] MEDS: SODIUM CHLOR 0.9% PF (SALINE LOCK) 10ML VIAL/SYR IV SCH ×3 (06:00→22:00)
[2023-05-03] MEDS: FUROSEMIDE 20 MG TAB PO SCH (09:23)
[2023-05-03] MEDS: SERTRALINE HCL 50 MG TAB PO SCH (09:24)
[2023-05-03] MEDS: CARVEDILOL 3.125 MG TAB PO SCH ×2 (09:24→22:42)
[2023-05-03] MEDS: ASPirin 81 mg TAB PO SCH (09:25)
[2023-05-03] MEDS: HYDROcodone-ACET 5/325MG TAB PO PRN (10:49)
[2023-05-03] MEDS: QUEtiapine FUMARATE 25 MG TAB PO SCH (21:39)
[2023-05-03] MEDS: ATORVASTATIN 20 MG TAB PO SCH (21:39)
[2023-05-04] VITALS (7 sets, daily range): BP systolic 82–120; BP diastolic 54–82; PULSE 69–107; RESP 17–20; TEMP 97.6–98.3; O2SAT 91–100
[2023-05-04] MEDS: SODIUM CHLOR 0.9% PF (SALINE LOCK) 10ML VIAL/SYR IV SCH ×3 (06:00→21:10)
[2023-05-04] MEDS: ASPirin 81 mg TAB PO SCH (09:40)
[2023-05-04] MEDS: SERTRALINE HCL 50 MG TAB PO SCH (09:40)
[2023-05-04] MEDS: FUROSEMIDE 20 MG TAB PO SCH (09:40)
[2023-05-04] MEDS: CARVEDILOL 3.125 MG TAB PO SCH ×2 (09:41→21:41)
[2023-05-04] MEDS: HYDROcodone-ACET 5/325MG TAB PO PRN ×2 (09:43→20:05)
[2023-05-04] MEDS: QUEtiapine FUMARATE 25 MG TAB PO SCH (21:40)
[2023-05-04] MEDS: ATORVASTATIN 20 MG TAB PO SCH (21:40)
[2023-05-05] VITALS (7 sets, daily range): BP systolic 98–108; BP diastolic 58–63; PULSE 75–94; RESP 15–18; TEMP 97.4–98.7; O2SAT 97–100
[2023-05-05] MEDS: ASPirin 81 mg TAB PO SCH (10:01)
[2023-05-05] MEDS: SERTRALINE HCL 50 MG TAB PO SCH (10:01)
[2023-05-05] MEDS: CARVEDILOL 3.125 MG TAB PO SCH ×2 (10:01→21:28)
[2023-05-05] MEDS: FUROSEMIDE 20 MG TAB PO SCH (10:02)
[2023-05-05] MEDS: SODIUM CHLOR 0.9% PF (SALINE LOCK) 10ML VIAL/SYR IV SCH ×3 (10:04→21:31)
[2023-05-05] MEDS: HYDROcodone-ACET 5/325MG TAB PO PRN ×2 (16:53→23:07)
[2023-05-05] MEDS: QUEtiapine FUMARATE 25 MG TAB PO SCH (21:27)
[2023-05-05] MEDS: ATORVASTATIN 20 MG TAB PO SCH (21:27)
[2023-05-06] VITALS (7 sets, daily range): BP systolic 99–111; BP diastolic 63–71; PULSE 80–101; RESP 18–20; TEMP 97.9–98.7; O2SAT 77–100
[2023-05-06] MEDS: SODIUM CHLOR 0.9% PF (SALINE LOCK) 10ML VIAL/SYR IV SCH ×3 (06:00→22:00)
[2023-05-06] MEDS: SERTRALINE HCL 50 MG TAB PO SCH (09:58)
[2023-05-06] MEDS: ASPirin 81 mg TAB PO SCH (09:58)
[2023-05-06] MEDS: CARVEDILOL 3.125 MG TAB PO SCH ×2 (09:59→21:51)
[2023-05-06] MEDS: FUROSEMIDE 20 MG TAB PO SCH (09:59)
[2023-05-06] MEDS: HYDROcodone-ACET 5/325MG TAB PO PRN (20:38)
[2023-05-06] MEDS: ATORVASTATIN 20 MG TAB PO SCH (21:51)
[2023-05-06] MEDS: QUEtiapine FUMARATE 25 MG TAB PO SCH (21:51)
[2023-05-07 05:00] VITALS: BP 97/70; PULSE 76; RESP 17; TEMP 97.6; O2SAT 97
[2023-05-07] MEDS: SODIUM CHLOR 0.9% PF (SALINE LOCK) 10ML VIAL/SYR IV SCH ×4 (06:00→22:00)
[2023-05-07 08:00] VITALS: PULSE 83; PULSE 86; RESP 17; O2SAT 97
[2023-05-07 08:30] VITALS: BP 100/64; PULSE 86; RESP 20; TEMP 98.3; O2SAT 97
[2023-05-07] MEDS: ASPirin 81 mg TAB PO SCH (09:56)
[2023-05-07] MEDS: SERTRALINE HCL 50 MG TAB PO SCH (09:57)
[2023-05-07] MEDS: CARVEDILOL 3.125 MG TAB PO SCH ×2 (09:57→22:01)
[2023-05-07] MEDS: FUROSEMIDE 20 MG TAB PO SCH (09:57)
[2023-05-07] MEDS: HYDROcodone-ACET 5/325MG TAB PO PRN ×2 (09:58→22:00)
[2023-05-07 16:55] VITALS: BP 122/75; PULSE 97; RESP 17; TEMP 97.7; O2SAT 100
[2023-05-07 20:00] VITALS: PULSE 115; PULSE 98; RESP 16; O2SAT 100
[2023-05-07] MEDS: ATORVASTATIN 20 MG TAB PO SCH (21:59)
[2023-05-07] MEDS: QUEtiapine FUMARATE 25 MG TAB PO SCH (21:59)
[2023-05-08] VITALS (7 sets, daily range): BP systolic 87–119; BP diastolic 50–77; PULSE 65–98; RESP 16–22; TEMP 97.3–98.6; O2SAT 98–100
[2023-05-08] MEDS: SODIUM CHLOR 0.9% PF (SALINE LOCK) 10ML VIAL/SYR IV SCH ×3 (06:00→22:00)
[2023-05-08] MEDS: FUROSEMIDE 20 MG TAB PO SCH (09:07)
[2023-05-08] MEDS: ASPirin 81 mg TAB PO SCH (09:08)
[2023-05-08] MEDS: CARVEDILOL 3.125 MG TAB PO SCH ×2 (09:08→22:26)
[2023-05-08] MEDS: SERTRALINE HCL 50 MG TAB PO SCH (09:08)
[2023-05-08] MEDS: ATORVASTATIN 20 MG TAB PO SCH (22:25)
[2023-05-08] MEDS: QUEtiapine FUMARATE 25 MG TAB PO SCH (22:25)
[2023-05-08] MEDS: HYDROcodone-ACET 5/325MG TAB PO PRN (23:31)
[2023-05-09 05:00] VITALS: BP 95/60; PULSE 74; RESP 16; TEMP 97.7; O2SAT 98
[2023-05-09] MEDS: SODIUM CHLOR 0.9% PF (SALINE LOCK) 10ML VIAL/SYR IV SCH (05:42)
[2023-05-09 08:00] VITALS: PULSE 98; RESP 16; O2SAT 100
[2023-05-09 08:59] VITALS: BP 90/57; PULSE 73; RESP 16; TEMP 98; O2SAT 100
[2023-05-09] MEDS: ASPirin 81 mg TAB PO SCH (09:50)
[2023-05-09] MEDS: CARVEDILOL 3.125 MG TAB PO SCH (09:51)
[2023-05-09] MEDS: SERTRALINE HCL 50 MG TAB PO SCH (09:51)
[2023-05-09] MEDS: FUROSEMIDE 20 MG TAB PO SCH (09:53)
[2023-05-09 13:00] VITALS: BP 92/59; PULSE 70; RESP 14; TEMP 98.2; O2SAT 98
[2023-05-09 16:55] VITALS: BP 106/70; PULSE 89; RESP 16; TEMP 97.7; O2SAT 99
[2023-05-09 17:57] VITALS: BP 90/57; PULSE 73; TEMP 36.5
[2023-05-09] MEDS ORDERED: CAR3125T PO (18:38)
[2023-05-09] MEDS ORDERED: SERT50TA PO (18:38)
[2023-05-09] MEDS ORDERED: ATOR20TA50 PO (18:38)
[2023-05-09] MEDS ORDERED: FUR20T PO (18:38)
[2023-05-09] MEDS ORDERED: ASPI-325 PO (18:38)
[2023-05-09] MEDS ORDERED: QUET1TAB11 PO (18:40)
== END 2023-05-09 19:40 | disposition home or self-care (01) | DRG 194 ==
LOC: ER 20:26 → TELE 04-25 00:38 → TELE-CENTR 04-25 09:54 → CENTRAL 05-07 14:16
PROVIDERS: ADMIT Internal Medicine; ATTEND Internal Medicine
DX: I11.0 Hypertensive heart disease with heart failure (principal); E87.20 Acidosis, unspecified; R45.851 Suicidal ideations; F33.3 Major depressive disorder, recurrent, severe with psychotic symptoms; I42.0 Dilated cardiomyopathy; I50.23 Acute on chronic systolic (congestive) heart failure; E78.5 Hyperlipidemia, unspecified; Z20.822 Contact with and (suspected) exposure to COVID-19; F15.10 Other stimulant abuse, uncomplicated; Z59.00 Homelessness unspecified; Z91.51 Personal history of suicidal behavior
CPT/HCPCS: 36415; 71045; 71250; 74176; 80053; 80307; 83605; 83690; 83880; 84484; 85025; 86141; 87040; 87070; 87880; 93005; 94640; 96361; 96374; 96376; 97110; 97116; 97163; 97530; G0378

== ENCOUNTER 2023-06-15 15:30 | Inpatient (IN) | payer MEDICAID ==
[~2023-06-15] VITALS: Ht 185.4 cm; Wt 95.0 kg
[~2023-06-15 15:30] MED LIST: ASPI-325 PO; ATOR20TA50 PO; CAR3125T PO; FUR20T PO; QUET1TAB11 PO; SERT50TA PO
[2023-06-15] MEDS ORDERED: FUROSEMIDE 40 MG/4 ML VIAL IV ONE (15:45)
[2023-06-15] MEDS ORDERED: ALBUMIN 25% 100 ML IV ONE (15:45)
[2023-06-15] MEDS ORDERED: dilTIAZem 25 MG/5 ML VIAL IV ONE (15:45)
[2023-06-15] MEDS ORDERED: DexAMETHasone SOD PHOS 10MG/1ML VIAL INJ IV ONE (15:45)
[2023-06-15] MEDS ORDERED: PANTOPRAZOLE 40 MG/10 ML VIAL INJ IV ONE (15:45)
[2023-06-15] MEDS ORDERED: EPINEPHrine HCL 0.5 ML NEB NEB ONE (15:45)
[2023-06-15] MEDS ORDERED: ALBUTEROL SULF 2.5 MG/0.5ML(0.5%) NEB SOLN NEB ONE (15:45)
[2023-06-15] MEDS ORDERED: ONDANSETRON HCL 4 MG/2 ML VIAL IV ONE (15:45)
[2023-06-15] MEDS ORDERED: ASPirin 81 mg TAB PO ONE (15:45)
[2023-06-15 16:00] VITALS: RESP 28; O2SAT 95
[2023-06-15] MEDS ORDERED: MAGNESIUM SULFATE 1GM/100ML 100 ML IV ONE (16:00)
[2023-06-15] MEDS ORDERED: guaiFENesin-DM 100/10mg/5ml SYR PO ONE (16:00)
[2023-06-15 16:08] LABS: Basophils # (auto) 0.1 10 ^3/uL (0-0.2); Basophils % (auto) 0.8 % (0.0-2.0); Eosinophils # (auto) 0 10 ^3/uL (0-0.8); Eosinophils % (auto) 0.4 % (0.0-7.0); Hemoglobin 14.4 g/dL (13.5-17.5); Lymphocytes # (auto) 2.6 10 ^3/uL (0.4-5.4); Lymphocytes % (auto) 39.4 % (10.0-50.0); Mean Corpuscular Hemoglobin 31.1 pg (28.0-32.0); Mean Corpuscular Hgb Conc. 33.6 g/dL (32.0-36.0); Mean Corpuscular Volume 92.7 fL (80.0-100.0); Monocytes # (auto) 0.5 10 ^3/uL (0-1.3); Neutrophils # (auto) 3.5 10 ^3/uL (1.6-8.6); Neutrophils % (auto) 52.4 % (37.0-80.0); Nucleated Red Blood Cells % 0.1 %; Red Blood Cells 4.64 10^6/uL (4.5-5.90); Red Cell Distribution Width 14.8 % (11.8-14.3); White Blood Cell 6.7 10^3/uL (4.4-10.8)
[2023-06-15 16:26] LABS: INR 1.19 (0.9-1.15); Partial Thromboplastin Time 24.2 SEC (24.5-34.5); Prothrombin Time 12.4 sec (9.3-11.8)
[2023-06-15 16:27] LABS: Alanine Aminotransferase 15 U/L (7-40); Albumin 4.3 g/dL (3.2-4.8); Alkaline Phosphatase 69 U/L (46-116); Anion Gap 9.7 (5-15); Aspartate Aminotransferase 16 U/L (13-40); BUN/Creatinine Ratio 11.4 (10.0-20.0); Blood Alcohol < 3.0 mg/dL (<10); Blood Urea Nitrogen 10 mg/dL (9-23); Calcium 9.4 mg/dL (8.7-10.4); Carbon Dioxide 26.3 mmol/L (20-30); Chloride 105 mmol/L (98-107); Glucose 100 mg/dL (74-106); Magnesium 1.8 mg/dL (1.6-2.6); Potassium 4.4 mmol/L (3.5-5.1); Sodium 141 mmol/L (136-145)
[2023-06-15 16:28] LABS: Bilirubin, Total 0.6 mg/dL (0.2-1.0); Total Protein 7.5 g/dL (5.7-8.2)
[2023-06-15 16:57] LABS: Base Excess 2.6 mmol/L (-2.0-2.0)
[2023-06-15] MEDS ORDERED: ONDANSETRON HCL 4 MG/2 ML VIAL IV PRN (17:00)
[2023-06-15] MEDS ORDERED: ACETAMINOPHEN 325 MG TAB PO PRN (17:00)
[2023-06-15] MEDS ORDERED: MORPHINE SULFATE INJ 2 MG/ml SYRG IV PRN ×2 (17:00)
[2023-06-15] MEDS ORDERED: NITROGLYCERIN 0.4 MG SL TAB SL PRN (17:00)
[2023-06-15 17:20] LABS: Urine Bacteria NONE SEEN /hpf (None Seen); Urine Blood Negative /uL (Negative); Urine Clarity Clear (Clear); Urine Color Colorless (Yellow); Urine Mucus FEW (None Seen); Urine Protein, UAD Negative (Negative); Urine Urobilinogen Normal (Negative); Urine WBC 1 /hpf (0 - 3)
[2023-06-15 17:26] LABS: Amphetamine Screen, Urine Pos (NEGATIVE); Barbiturate Scree,Urine Neg (NEGATIVE); Benzodiazephine Screen, Urine Neg (NEGATIVE); Cannabinoid Screen, Urine Pos (NEGATIVE); Cocaine Screen, Urine Neg (NEGATIVE); Opiate Scree,Urine Neg (NEGATIVE); Phencyclidine Screen, Urine Neg (NEGATIVE)
[2023-06-15 18:10] VITALS: BP 118/81; PULSE 113; O2SAT 97
[2023-06-15] MEDS ORDERED: ENOXAPARIN SOD 100 MG/1 ML SYRINGE SC ONE (18:30)
[2023-06-15] MEDS ORDERED: IOHEXOL 350 MG/ML 100ML IJ ONE ×2 (18:44→22:18)
[2023-06-15] MEDS: FUROSEMIDE 40 MG/4 ML VIAL IV SCH (19:12)
[2023-06-15 20:10] VITALS: BP 121/85; PULSE 103; PULSE 111; RESP 24; O2SAT 100; O2SAT 99
[2023-06-15] MEDS: HYDROcodone-ACET 5/325MG TAB PO PRN (21:41)
[2023-06-15 22:00] VITALS: BP 98/72; PULSE 97; O2SAT 99
[2023-06-15] MEDS ORDERED: LORazepam 2MG/ML-1ML VIAL IV ONE (23:00)
[2023-06-15] MEDS: ATORVASTATIN 20 MG TAB PO SCH (23:23)
[2023-06-15] MEDS: QUEtiapine FUMARATE 25 MG TAB PO SCH (23:23)
[2023-06-15] MEDS: CARVEDILOL 3.125 MG TAB PO SCH (23:24)
[2023-06-16 00:29] LABS: COVID19 ANTIGEN SOFIA FIA NEGATIVE (NEGATIVE); Rapid Influenza A Negative (Negative); Rapid Influenza B Negative (Negative)
[2023-06-16 01:39] VITALS: BP 97/55; PULSE 105; RESP 17; TEMP 97.9; O2SAT 97
[2023-06-16 03:56] LABS: Basophils # (auto) 0 10 ^3/uL (0-0.2); Basophils % (auto) 0.5 % (0.0-2.0); Eosinophils # (auto) 0 10 ^3/uL (0-0.8); Eosinophils % (auto) 0.1 % (0.0-7.0); Hematocrit 42.4 % (41.0-53.0); Hemoglobin 14.5 g/dL (13.5-17.5); Lymphocytes # (auto) 1.3 10 ^3/uL (0.4-5.4); Lymphocytes % (auto) 35.1 % (10.0-50.0); Mean Corpuscular Hemoglobin 31.6 pg (28.0-32.0); Mean Corpuscular Hgb Conc. 34.2 g/dL (32.0-36.0); Mean Corpuscular Volume 92.3 fL (80.0-100.0); Monocytes # (auto) 0.1 10 ^3/uL (0-1.3); Monocytes % (auto) 2.8 % (0.0-12.0); Neutrophils # (auto) 2.2 10 ^3/uL (1.6-8.6); Neutrophils % (auto) 61.5 % (37.0-80.0); Red Cell Distribution Width 14.8 % (11.8-14.3); White Blood Cell 3.6 10^3/uL (4.4-10.8)
[2023-06-16 04:14] LABS: Alanine Aminotransferase 10 U/L (7-40); Albumin 4.2 g/dL (3.2-4.8); Alkaline Phosphatase 64 U/L (46-116); Anion Gap 8.1 (5-15); Aspartate Aminotransferase 10 U/L (13-40); BUN/Creatinine Ratio 9.9 (10.0-20.0); Blood Urea Nitrogen 10 mg/dL (9-23); Calcium 9.3 mg/dL (8.7-10.4); Carbon Dioxide 27.9 mmol/L (20-30); Chloride 102 mmol/L (98-107); Glucose 133 mg/dL (74-106); Potassium 4.7 mmol/L (3.5-5.1); Sodium 138 mmol/L (136-145)
[2023-06-16 04:15] LABS: Bilirubin, Total 0.4 mg/dL (0.2-1.0); Total Protein 6.7 g/dL (5.7-8.2)
[2023-06-16 05:47] VITALS: O2SAT 96
[2023-06-16] MEDS: FUROSEMIDE 40 MG/4 ML VIAL IV SCH ×2 (06:15→18:15)
[2023-06-16 08:30] VITALS: RESP 15; O2SAT 99
[2023-06-16] MEDS ORDERED: POTA-180 PO (09:49)
[2023-06-16] MEDS ORDERED: LISI-275 PO (09:49)
[2023-06-16] MEDS: ENOXAPARIN SOD 40 MG/0.4 ML SYRINGE SC SCH (10:07)
[2023-06-16] MEDS: SERTRALINE HCL 50 MG TAB PO SCH (10:08)
[2023-06-16] MEDS: CARVEDILOL 3.125 MG TAB PO SCH ×2 (10:08→22:00)
[2023-06-16] MEDS: ASPirin-EC 81 mg tab PO SCH (10:08)
[2023-06-16] MEDS: SACUBITRIL-VALSARTAN 24mg/26mg TAB PO SCH ×2 (10:09→22:00)
[2023-06-16] MEDS: HYDROcodone-ACET 5/325MG TAB PO PRN (19:44)
[2023-06-16 19:45] VITALS: PULSE 87; RESP 18; O2SAT 96
[2023-06-16] MEDS: QUEtiapine FUMARATE 25 MG TAB PO SCH (22:20)
[2023-06-16] MEDS: ATORVASTATIN 20 MG TAB PO SCH (22:20)
[2023-06-16 23:07] VITALS: O2SAT 94
[2023-06-17] MEDS: FUROSEMIDE 40 MG/4 ML VIAL IV SCH ×2 (06:00→17:28)
[2023-06-17] MEDS: EMPAGLIFLOZIN 10 MG TAB PO SCH (07:19)
[2023-06-17 07:26] VITALS: PULSE 99; RESP 18; O2SAT 96
[2023-06-17 09:08] VITALS: O2SAT 95
[2023-06-17] MEDS: CARVEDILOL 3.125 MG TAB PO SCH ×2 (09:59→22:00)
[2023-06-17] MEDS: ASPirin-EC 81 mg tab PO SCH (09:59)
[2023-06-17] MEDS: SACUBITRIL-VALSARTAN 24mg/26mg TAB PO SCH ×2 (09:59→22:11)
[2023-06-17] MEDS: SERTRALINE HCL 50 MG TAB PO SCH (10:00)
[2023-06-17] MEDS: POTASSIUM CHL 20 Meq TABLET PO SCH (10:00)
[2023-06-17] MEDS: ENOXAPARIN SOD 40 MG/0.4 ML SYRINGE SC SCH (10:00)
[2023-06-17] MEDS ORDERED: MORPHINE SULFATE INJ 2 MG/ml SYRG IV PRN (11:00)
[2023-06-17] MEDS ORDERED: NITROGLYCERIN 0.4 MG SL TAB SL PRN (11:00)
[2023-06-17] MEDS ORDERED: SODIUM CHLORIDE 0.9% 1,000 ML IV ONE (17:30)
[2023-06-17 20:10] VITALS: PULSE 110; RESP 20; O2SAT 96
[2023-06-17] MEDS: ATORVASTATIN 20 MG TAB PO SCH (22:11)
[2023-06-17] MEDS: QUEtiapine FUMARATE 25 MG TAB PO SCH (22:11)
[2023-06-17 22:40] VITALS: O2SAT 96
[2023-06-18] MEDS: FUROSEMIDE 40 MG/4 ML VIAL IV SCH ×2 (06:00→18:00)
[2023-06-18] MEDS: EMPAGLIFLOZIN 10 MG TAB PO SCH (06:43)
[2023-06-18 09:00] VITALS: PULSE 92; RESP 18; O2SAT 94
[2023-06-18 09:55] LABS: Chloride 104 mmol/L (98-107); Sodium 138 mmol/L (136-145)
[2023-06-18 09:56] LABS: Anion Gap 4.4 (5-15); Calcium 8.8 mg/dL (8.5-10.1); Carbon Dioxide 29.6 mmol/L (20-30)
[2023-06-18 10:01] LABS: BUN/Creatinine Ratio 16.7 (10.0-20.0); Blood Urea Nitrogen 15 mg/dL (9-23); Glucose 174 mg/dL (74-106)
[2023-06-18] MEDS: CARVEDILOL 3.125 MG TAB PO SCH ×2 (10:43→23:10)
[2023-06-18] MEDS: SERTRALINE HCL 50 MG TAB PO SCH (10:44)
[2023-06-18] MEDS: ENOXAPARIN SOD 40 MG/0.4 ML SYRINGE SC SCH (10:45)
[2023-06-18] MEDS: POTASSIUM CHL 20 Meq TABLET PO SCH (10:45)
[2023-06-18] MEDS: ASPirin-EC 81 mg tab PO SCH (10:46)
[2023-06-18] MEDS: SACUBITRIL-VALSARTAN 24mg/26mg TAB PO SCH ×2 (10:46→23:09)
[2023-06-18] MEDS ORDERED: ATOR20TA50 PO (12:57)
[2023-06-18] MEDS ORDERED: QUET1TAB11 PO (12:57)
[2023-06-18] MEDS ORDERED: FUR20T PO (12:57)
[2023-06-18] MEDS ORDERED: SERT50TA PO (12:57)
[2023-06-18] MEDS ORDERED: CAR3125T PO (12:57)
[2023-06-18] MEDS ORDERED: ASPI-325 PO (12:57)
[2023-06-18] MEDS: ATORVASTATIN 20 MG TAB PO SCH (23:09)
[2023-06-18] MEDS: QUEtiapine FUMARATE 25 MG TAB PO SCH (23:09)
[2023-06-19] MEDS: FUROSEMIDE 40 MG/4 ML VIAL IV SCH (06:00)
[2023-06-19] MEDS: EMPAGLIFLOZIN 10 MG TAB PO SCH (06:46)
[2023-06-19 08:58] VITALS: BP 106/70; PULSE 84; RESP 13; TEMP 97.8; O2SAT 95
[2023-06-19] MEDS: CARVEDILOL 3.125 MG TAB PO SCH (10:00)
[2023-06-19] MEDS: ASPirin-EC 81 mg tab PO SCH (10:43)
[2023-06-19] MEDS: SACUBITRIL-VALSARTAN 24mg/26mg TAB PO SCH (10:43)
[2023-06-19] MEDS: ENOXAPARIN SOD 40 MG/0.4 ML SYRINGE SC SCH (10:44)
[2023-06-19] MEDS: SERTRALINE HCL 50 MG TAB PO SCH (10:44)
== END 2023-06-19 23:30 | disposition home or self-care (01) | DRG 133 ==
LOC: ER 15:30 → TELE 17:03
PROVIDERS: ADMIT Internal Medicine; ATTEND Internal Medicine
PROC: 5A09357 Assistance with Respiratory Ventilation, Less than 24 Consecutive Hours, Continuous Positive Airway Pressure (ICD-10-PCS; principal; 2023-06-15)
DX: J96.01 Acute respiratory failure with hypoxia (principal); I50.23 Acute on chronic systolic (congestive) heart failure; G93.1 Anoxic brain damage, not elsewhere classified; I42.0 Dilated cardiomyopathy; I11.0 Hypertensive heart disease with heart failure; F15.10 Other stimulant abuse, uncomplicated; F32.A Depression, unspecified; F41.9 Anxiety disorder, unspecified; Z20.822 Contact with and (suspected) exposure to COVID-19; Z59.00 Homelessness unspecified; Z79.899 Other long term (current) drug therapy; Z87.891 Personal history of nicotine dependence; Z91.199 Patient's noncompliance with other medical treatment and regimen due to unspecified reason
CPT/HCPCS: 36415; 36600; 71045; 71275; 80048; 80053; 80307; 80320; 81001; 82805; 83605; 83735; 83880; 84443; 84484; 85025; 85379; 85610; 85730; 87040; 87426; 87804; 93306; 93971; 94640; 94660; 96365; 96375; C9113; G0378; J1100; J2405; P9047

== ENCOUNTER 2023-07-16 14:10 | Inpatient (IN) | payer MEDICAID ==
[2023-07-16] VITALS (10 sets, daily range): BP systolic 106–125; BP diastolic 72–92; PULSE 115–129; RESP 23–35; TEMP 97.6; O2SAT 95–100
[~2023-07-16] VITALS: Ht 185.4 cm; Wt 68.9 kg
[~2023-07-16 14:10] MED LIST changes: +POTA-180 PO
[2023-07-16] MEDS ORDERED: FUROSEMIDE 40 MG/4 ML VIAL IV ONE (14:45)
[2023-07-16] MEDS ORDERED: NITROGLYCERIN 2% OINT 1GM PKG TD ONE (14:45)
[2023-07-16 14:54] LABS: Basophils # (auto) 0 10 ^3/uL (0-0.2); Basophils % (auto) 0.9 % (0.0-2.0); Eosinophils # (auto) 0 10 ^3/uL (0-0.8); Eosinophils % (auto) 0.2 % (0.0-7.0); Hematocrit 36.3 % (41.0-53.0); Hemoglobin 12.1 g/dL (13.5-17.5); Lymphocytes # (auto) 1.3 10 ^3/uL (0.4-5.4); Lymphocytes % (auto) 23.2 % (10.0-50.0); Mean Corpuscular Hemoglobin 30.5 pg (28.0-32.0); Mean Corpuscular Hgb Conc. 33.3 g/dL (32.0-36.0); Mean Corpuscular Volume 91.6 fL (80.0-100.0); Monocytes # (auto) 0.4 10 ^3/uL (0-1.3); Monocytes % (auto) 6.8 % (0.0-12.0); Neutrophils # (auto) 3.8 10 ^3/uL (1.6-8.6); Neutrophils % (auto) 68.9 % (37.0-80.0); Red Blood Cells 3.97 10^6/uL (4.5-5.90); Red Cell Distribution Width 15.4 % (11.8-14.3); White Blood Cell 5.6 10^3/uL (4.4-10.8)
[2023-07-16 15:09] LABS: INR 1.34 (0.9-1.15); Prothrombin Time 13.8 sec (9.3-11.8)
[2023-07-16 15:17] LABS: Alanine Aminotransferase 25 U/L (7-40); Alkaline Phosphatase 67 U/L (46-116); Anion Gap 7 (5-15); Aspartate Aminotransferase 31 U/L (13-40); BUN/Creatinine Ratio 14.1 (10.0-20.0); Bilirubin, Total 1.2 mg/dL (0.2-1.0); Blood Urea Nitrogen 14 mg/dL (9-23); Calcium 9.1 mg/dL (8.7-10.4); Carbon Dioxide 27 mmol/L (20-30); Chloride 102 mmol/L (98-107); Glucose 96 mg/dL (74-106); Potassium 4.3 mmol/L (3.5-5.1); Sodium 136 mmol/L (136-145); Total Protein 6.8 g/dL (5.7-8.2)
[2023-07-16 15:50] LABS: Base Excess -2.3 mmol/L (-2.0-2.0)
[2023-07-16] MEDS ORDERED: DexAMETHasone SOD PHOS 10MG/1ML VIAL INJ IV ONE (16:15)
[2023-07-16] MEDS ORDERED: ASPirin 300 MG RECTAL SUPP PR ONE (16:30)
[2023-07-16] MEDS ORDERED: IPRATROPIUM BROM 0.5 MG/2.5ML INH SOL ONE (17:39)
[2023-07-16] MEDS ORDERED: LEVALBUTEROL HCL 1.25 MG/3 ML NEB ONE (17:39)
[2023-07-16] MEDS ORDERED: MORPHINE SULFATE INJ 2 MG/ml SYRG IV PRN ×2 (17:45→18:00)
[2023-07-16] MEDS ORDERED: NITROGLYCERIN 0.4 MG SL TAB SL PRN (17:45)
[2023-07-16] MEDS ORDERED: ONDANSETRON HCL 4 MG/2 ML VIAL IV PRN (18:00)
[2023-07-16] MEDS ORDERED: MORPHINE SULFATE 4 MG/ML SYR/VIAL IV PRN (18:00)
[2023-07-16] MEDS: LEVALBUTEROL HCL 1.25 MG/3 ML NEB NEB SCH (18:50)
[2023-07-16] MEDS: IPRATROPIUM BROM 0.5 MG/2.5ML INH SOL NEB SCH (18:51)
[2023-07-16] MEDS: MAGNESIUM SULFATE 1GM/100ML 100 ML IV SCH ×4 (20:59→23:01)
[2023-07-16 21:25] LABS: Urine Bacteria NONE SEEN /hpf (None Seen); Urine Blood Negative /uL (Negative); Urine Clarity Clear (Clear); Urine Color Colorless (Yellow); Urine Protein, UAD Negative (Negative); Urine Specific Gravity 1.005 (1.001-1.035); Urine Urobilinogen Normal (Negative); Urine WBC <1 /hpf (0 - 3)
[2023-07-16 21:33] LABS: Amphetamine Screen, Urine Pos (NEGATIVE); Barbiturate Scree,Urine Neg (NEGATIVE); Benzodiazephine Screen, Urine Neg (NEGATIVE); Cannabinoid Screen, Urine Neg (NEGATIVE); Cocaine Screen, Urine Neg (NEGATIVE); Opiate Scree,Urine Neg (NEGATIVE); Phencyclidine Screen, Urine Neg (NEGATIVE)
[2023-07-16] MEDS: BUMETANIDE 2.5mg/10ml (0.25 mg/ml) INJ IV SCH (21:36)
[2023-07-16] MEDS: POTASSIUM CHL 10 Meq TABLET PO SCH (22:04)
[2023-07-16] MEDS: predniSONE 20 MG TAB PO SCH (22:04)
[2023-07-17] VITALS (31 sets, daily range): BP systolic 70–115; BP diastolic 43–91; PULSE 97–121; RESP 13–38; TEMP 96.7–98.3; O2SAT 95–100
[2023-07-17] MEDS ORDERED: MAGNESIUM SULFATE 1GM/100ML 100 ML IV ONE (02:32)
[2023-07-17] MEDS: MAGNESIUM SULFATE 1GM/100ML 100 ML IV SCH (02:34)
[2023-07-17] MEDS: LEVALBUTEROL HCL 1.25 MG/3 ML NEB NEB SCH ×3 (06:24→17:54)
[2023-07-17] MEDS: IPRATROPIUM BROM 0.5 MG/2.5ML INH SOL NEB SCH ×3 (06:24→17:53)
[2023-07-17] MEDS: BUMETANIDE 2.5mg/10ml (0.25 mg/ml) INJ IV SCH ×2 (06:43→18:09)
[2023-07-17] MEDS ORDERED: cefTRIAXone 1GM/50ML D5W 50 ML IV SCH (09:00)
[2023-07-17 09:04] LABS: Basophils # (auto) 0 10 ^3/uL (0-0.2); Basophils % (auto) 0.1 % (0.0-2.0); Eosinophils # (auto) 0 10 ^3/uL (0-0.8); Hematocrit 45.3 % (41.0-53.0); Hemoglobin 15.2 g/dL (13.5-17.5); Lymphocytes % (auto) 20.3 % (10.0-50.0); Mean Corpuscular Hgb Conc. 33.5 g/dL (32.0-36.0); Mean Corpuscular Volume 92.5 fL (80.0-100.0); Monocytes # (auto) 0.3 10 ^3/uL (0-1.3); Monocytes % (auto) 5.7 % (0.0-12.0); Neutrophils # (auto) 3.6 10 ^3/uL (1.6-8.6); Neutrophils % (auto) 73.9 % (37.0-80.0); Nucleated Red Blood Cells % 0.4 %; Red Blood Cells 4.89 10^6/uL (4.5-5.90); Red Cell Distribution Width 15.3 % (11.8-14.3); White Blood Cell 4.9 10^3/uL (4.4-10.8)
[2023-07-17 09:14] LABS: Chloride 101 mmol/L (98-107); Potassium 4.2 mmol/L (3.5-5.1); Sodium 137 mmol/L (136-145)
[2023-07-17 09:15] LABS: Anion Gap 8 (5-15); Calcium 9.2 mg/dL (8.5-10.1); Carbon Dioxide 28 mmol/L (20-30)
[2023-07-17 09:20] LABS: BUN/Creatinine Ratio 8.6 (10.0-20.0); Blood Urea Nitrogen 8 mg/dL (9-23); Glucose 134 mg/dL (74-106)
[2023-07-17] MEDS ORDERED: FAMOTIDINE (10MG/ML) 2ML VL IV SCH (10:00)
[2023-07-17] MEDS: predniSONE 20 MG TAB PO SCH ×2 (10:10→21:42)
[2023-07-17] MEDS: POTASSIUM CHL 10 Meq TABLET PO SCH ×2 (10:10→21:42)
[2023-07-17 10:19] LABS: Magnesium 2.7 mg/dL (1.6-2.6)
[2023-07-18] VITALS (27 sets, daily range): BP systolic 86–124; BP diastolic 52–95; PULSE 97–125; RESP 14–29; TEMP 97.4–98.2; O2SAT 94–100
[2023-07-18] MEDS: MIDODRINE HCL 10 MG TAB PO SCH ×3 (00:25→21:23)
[2023-07-18 05:46] LABS: Anion Gap 6 (5-15); Carbon Dioxide 32 mmol/L (20-30); Chloride 99 mmol/L (98-107); Potassium 4.4 mmol/L (3.5-5.1); Sodium 137 mmol/L (136-145)
[2023-07-18 05:52] LABS: BUN/Creatinine Ratio 16.8 (10.0-20.0); Blood Urea Nitrogen 17 mg/dL (9-23); Glucose 119 mg/dL (74-106)
[2023-07-18] MEDS: BUMETANIDE 2.5mg/10ml (0.25 mg/ml) INJ IV SCH (06:14)
[2023-07-18] MEDS: IPRATROPIUM BROM 0.5 MG/2.5ML INH SOL NEB SCH ×3 (06:21→18:30)
[2023-07-18] MEDS: LEVALBUTEROL HCL 1.25 MG/3 ML NEB NEB SCH ×3 (06:21→18:31)
[2023-07-18] MEDS: FAMOTIDINE 20 MG TAB PO SCH (09:52)
[2023-07-18] MEDS: predniSONE 20 MG TAB PO SCH ×2 (09:52→21:24)
[2023-07-18] MEDS: ENOXAPARIN SOD 40 MG/0.4 ML SYRINGE SC SCH (09:52)
[2023-07-18] MEDS: POTASSIUM CHL 10 Meq TABLET PO SCH (09:52)
[2023-07-18] MEDS: BUMETANIDE 1 MG TAB PO SCH (18:34)
[2023-07-18] MEDS ORDERED: POTASSIUM CHL 10 Meq TABLET PO SCH (22:00)
[2023-07-19] VITALS (14 sets, daily range): BP systolic 96–112; BP diastolic 61–76; PULSE 91–111; RESP 18–94; TEMP 97.5–97.9; O2SAT 94–100
[2023-07-19] MEDS: BUMETANIDE 1 MG TAB PO SCH ×2 (05:29→18:20)
[2023-07-19] MEDS: IPRATROPIUM BROM 0.5 MG/2.5ML INH SOL NEB SCH ×3 (06:52→18:06)
[2023-07-19] MEDS: LEVALBUTEROL HCL 1.25 MG/3 ML NEB NEB SCH ×3 (06:53→18:07)
[2023-07-19 06:58] LABS: Chloride 96 mmol/L (98-107); Potassium 5.3 mmol/L (3.5-5.1); Sodium 136 mmol/L (136-145)
[2023-07-19 06:59] LABS: Calcium 9.2 mg/dL (8.5-10.1)
[2023-07-19 07:04] LABS: Glucose 98 mg/dL (74-106)
[2023-07-19 07:23] LABS: Blood Urea Nitrogen 27 mg/dL (9-23)
[2023-07-19 08:12] LABS: Anion Gap 14 (5-15); Carbon Dioxide 26 mmol/L (20-30)
[2023-07-19] MEDS: FAMOTIDINE 20 MG TAB PO SCH (09:23)
[2023-07-19] MEDS: MIDODRINE HCL 10 MG TAB PO SCH ×2 (09:23→21:30)
[2023-07-19] MEDS: predniSONE 20 MG TAB PO SCH ×2 (09:23→21:30)
[2023-07-19] MEDS: ENOXAPARIN SOD 40 MG/0.4 ML SYRINGE SC SCH (09:23)
[2023-07-19] MEDS: ALPRAZolam 0.5 MG TAB PO PRN (17:00)
[2023-07-20] VITALS (12 sets, daily range): BP systolic 92–105; BP diastolic 63–75; PULSE 91–110; RESP 17–24; TEMP 97.1–97.8; O2SAT 93–100
[2023-07-20] MEDS: BUMETANIDE 1 MG TAB PO SCH ×2 (05:36→17:44)
[2023-07-20] MEDS: LEVALBUTEROL HCL 1.25 MG/3 ML NEB NEB SCH ×3 (06:00→18:00)
[2023-07-20] MEDS: IPRATROPIUM BROM 0.5 MG/2.5ML INH SOL NEB SCH ×3 (06:00→18:00)
[2023-07-20] MEDS: predniSONE 20 MG TAB PO SCH ×2 (11:53→22:46)
[2023-07-20] MEDS: MIDODRINE HCL 10 MG TAB PO SCH ×2 (11:53→22:46)
[2023-07-20] MEDS: FAMOTIDINE 20 MG TAB PO SCH (11:53)
[2023-07-20] MEDS: ENOXAPARIN SOD 40 MG/0.4 ML SYRINGE SC SCH (11:53)
[2023-07-20 14:04] LABS: Chloride 93 mmol/L (98-107); Potassium 3.7 mmol/L (3.5-5.1); Sodium 135 mmol/L (136-145)
[2023-07-20 14:05] LABS: Anion Gap 7 (5-15); Calcium 9.3 mg/dL (8.5-10.1); Carbon Dioxide 35 mmol/L (20-30)
[2023-07-20 14:10] LABS: BUN/Creatinine Ratio 19.1 (10.0-20.0); Blood Urea Nitrogen 18 mg/dL (9-23); Glucose 115 mg/dL (74-106)
[2023-07-21] VITALS (14 sets, daily range): BP systolic 90–115; BP diastolic 58–70; PULSE 66–113; RESP 16–98; TEMP 97.8–98.3; O2SAT 92–100
[2023-07-21] MEDS: BUMETANIDE 1 MG TAB PO SCH ×2 (06:00→18:55)
[2023-07-21 06:24] LABS: Calcium 9.6 mg/dL (8.5-10.1); Chloride 95 mmol/L (98-107); Potassium 4.6 mmol/L (3.5-5.1); Sodium 135 mmol/L (136-145)
[2023-07-21 06:30] LABS: BUN/Creatinine Ratio 20.8 (10.0-20.0); Blood Urea Nitrogen 21 mg/dL (9-23); Glucose 106 mg/dL (74-106)
[2023-07-21] MEDS: LEVALBUTEROL HCL 1.25 MG/3 ML NEB NEB SCH ×3 (06:39→18:28)
[2023-07-21] MEDS: IPRATROPIUM BROM 0.5 MG/2.5ML INH SOL NEB SCH ×3 (06:39→18:27)
[2023-07-21 07:01] LABS: Anion Gap 8 (5-15); Carbon Dioxide 32 mmol/L (20-30)
[2023-07-21] MEDS: ENOXAPARIN SOD 40 MG/0.4 ML SYRINGE SC SCH (10:05)
[2023-07-21] MEDS: FAMOTIDINE 20 MG TAB PO SCH (10:05)
[2023-07-21] MEDS: MIDODRINE HCL 10 MG TAB PO SCH ×2 (10:05→22:26)
[2023-07-21] MEDS: predniSONE 20 MG TAB PO SCH (10:05)
[2023-07-21] MEDS ORDERED: HYDROcodone-ACET 5/325MG TAB PO PRN (13:15)
[2023-07-22 05:00] VITALS: BP 105/59; PULSE 89; RESP 21; TEMP 98.1; O2SAT 100
[2023-07-22] MEDS: BUMETANIDE 1 MG TAB PO SCH (06:44)
[2023-07-22] MEDS: ACETYLCYSTEINE 10 %(100MG/ML) SOL 4ML NEB SCH ×2 (07:00→11:10)
[2023-07-22] MEDS: LEVALBUTEROL HCL 1.25 MG/3 ML NEB NEB SCH ×2 (07:00→11:10)
[2023-07-22] MEDS: IPRATROPIUM BROM 0.5 MG/2.5ML INH SOL NEB SCH ×2 (07:00→11:10)
[2023-07-22 08:00] VITALS: PULSE 103; PULSE 104; RESP 20; O2SAT 98
[2023-07-22] MEDS: FAMOTIDINE 20 MG TAB PO SCH (08:33)
[2023-07-22] MEDS: MIDODRINE HCL 10 MG TAB PO SCH (08:33)
[2023-07-22] MEDS: ALPRAZolam 0.5 MG TAB PO PRN (08:33)
[2023-07-22] MEDS: ENOXAPARIN SOD 40 MG/0.4 ML SYRINGE SC SCH (08:34)
[2023-07-22 08:48] VITALS: BP 110/64; PULSE 92; RESP 19; TEMP 97.7; O2SAT 100
[2023-07-22] MEDS ORDERED: MID10T PO (09:30)
[2023-07-22] MEDS ORDERED: SERT50TA PO (09:30)
[2023-07-22] MEDS ORDERED: FLUT500M2 INH (09:30)
[2023-07-22] MEDS ORDERED: SERTRALINE HCL 50 MG TAB PO ONE (09:30)
[2023-07-22] MEDS ORDERED: QUET1TAB11 PO (09:30)
[2023-07-22] MEDS ORDERED: POTA-180 PO (09:30)
[2023-07-22] MEDS ORDERED: BUME2TAB5 PO (09:30)
[2023-07-22 12:35] VITALS: BP 89/52; PULSE 104; RESP 19; TEMP 97.7; O2SAT 97
== END 2023-07-22 14:05 | disposition home or self-care (01) | DRG 194 ==
LOC: EDBD 14:10 → EDUNIT# 14:10 → ER 14:10 → TELE 17:53 → DOU IN ICU 23:21 → TELE-EAST 07-18 16:21
PROVIDERS: ADMIT Hospitalist; ATTEND Hospitalist
PROC: 5A09357 Assistance with Respiratory Ventilation, Less than 24 Consecutive Hours, Continuous Positive Airway Pressure (ICD-10-PCS; principal; 2023-07-16)
PROC: 5A09357 Assistance with Respiratory Ventilation, Less than 24 Consecutive Hours, Continuous Positive Airway Pressure (ICD-10-PCS; 2023-07-17)
PROC: 5A09357 Assistance with Respiratory Ventilation, Less than 24 Consecutive Hours, Continuous Positive Airway Pressure (ICD-10-PCS; 2023-07-18)
DX: I11.0 Hypertensive heart disease with heart failure (principal); J96.01 Acute respiratory failure with hypoxia; G92.8 Other toxic encephalopathy; I50.23 Acute on chronic systolic (congestive) heart failure; J44.9 Chronic obstructive pulmonary disease, unspecified; I42.0 Dilated cardiomyopathy; E83.42 Hypomagnesemia; F15.10 Other stimulant abuse, uncomplicated; E11.9 Type 2 diabetes mellitus without complications; J98.11 Atelectasis; Z59.00 Homelessness unspecified; Z91.199 Patient's noncompliance with other medical treatment and regimen due to unspecified reason; Z79.899 Other long term (current) drug therapy
CPT/HCPCS: 36415; 36600; 71045; 80048; 80053; 80307; 81001; 82805; 83605; 83735; 83880; 84484; 85025; 85610; 87081; 93005; 94640; 94660; 99291; G0378; J0696; J1100; J3490